=== PATIENT | male | born 1995 | race Caucasian/White ===

== ENCOUNTER 2016-12-26 20:36 | Inpatient (IN) | payer MEDICAID, OTHER ==
[2016-12-26] MEDS ORDERED: NS 0.9% 1000 ML* 3,000 ML IV ONE (21:14)
--- NOTE | 2016-12-26 21:48 | RAD ---
INDICATION: Fever on chemotherapy. COMPARISON: Comparison is made with a prior chest x-ray study from April 12, 2011. TECHNIQUE: A portable view of the chest was obtained. FINDINGS: Cardiac and mediastinal contours appear to be within normal limits. There is a central venous catheter entering from the left side. The catheter tip projects over the right atrium. The lungs are clear. No pleural effusion is seen. IMPRESSION: NO EVIDENCE FOR ACUTE DISEASE.
[2016-12-26 22:30] LABS: Urine Bilirubin Negative (Negative); Urine Glucose Negative (Negative); Urine Nitrite Negative (Negative)
[2016-12-26 22:38] LABS: Hematocrit 25 % (42-52); Hemoglobin 8.8 g/dl (14.0-18.0); Mean Corpuscular HGB Conc 35 g/dl (31-36); Mean Corpuscular Hemoglobin 30 pg (27-31); Mean Corpuscular Volume 84 fL (80-94); Red Blood Count 2.95 10^6/ul (4.0-5.4); Red Cell Distribution Width 14 % (10.5-15); White Blood Count 0.5 10^3/ul (3.5-10.8)
[2016-12-26 22:39] LABS: Comments Flag Yes
[2016-12-26 22:40] LABS: Add Diff/Slide Review? Manual Diff Added
[2016-12-26 22:43] LABS: Albumin 3.6 g/dL (3.2-5.2); BUN/Creatinine Ratio 13.2 (8-20); Calcium 8.6 mg/dL (8.6-10.3); EGFR Non-African American 104.2 (>60); Globulin 1.6 g/dL (2-4); Potassium 3.2 mmol/L (3.5-5.0); Total Bilirubin 1.3 mg/dL (0.2-1.0); Total Protein 5.2 g/dL (6.4-8.9)
[2016-12-26 23:03] LABS: Add Path Review? YES; Hypochromasia 1+
[2016-12-26 23:05] LABS: Mean Platelet Volume 9 um3 (7.4-10.4)
[2016-12-26 23:10] LABS: Neutrophil % 0 % (38-83)
[2016-12-27] MEDS ORDERED: Cefepime(*) 2 GM in NS 0.9% 50 ML* 50 ML IVPB ONE (00:06)
--- NOTE | 2016-12-27 01:49 | HP ---
H&P (Free Text) History and Physical: PCP: Lay Mckeon MD Date/Time of Evaluation: 12/27/2016 0140 CC: fever HPI: Mr Slaughter is a 21YO male HX lymphoma on treatment via oncology in [place] presenting with fever of 100.6F at home for which he took acetaminophen. This was associated with subjective chills, but no cough, congestion, earache, headache, sore throat, open wounds, or other issues. He does have a sore tongue and his 2 young children at home have had runny noses. 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 Acyclovir CAP* [Zovirax CAP*] 200 mg PO BID 12/27/16 Ciprofloxacin TAB* [Cipro 500 MG TAB*] 500 mg PO BID 12/27/16 Compazine Tab* 12/27/16 Fenofibrate 12/27/16 Gabapentin CAP(*) [Neurontin 100 mg CAP(*)] 100 mg PO TID 12/27/16 Lexapro 10 mg 10 mg PO DAILY 12/27/16 Ondansetron ODT TAB* [Zofran 4 MG Odt TAB*] 8 mg PO Q8H PRN 12/27/16 Pantoprazole Sodium 20 mg PO DAILY 12/27/16 Ranitidine HCl [Zantac 75] 75 mg PO DAILY 12/27/16 Sulfamethox/Trimethoprim DS* [Bactrim DS 800/160 TAB*] 1 tab PO SEE INSTRUCTIONS 12/27/16 clonazePAM TAB(*) [Klonopin TAB(*)] 0.5 mg PO BEDTIME 12/27/16 Allergies Tramadol Allergy (Intermediate, Verified 02/02/15 04:20) Difficulty Breathing PSurgHx port placement SocHx: 1 can snuff Q2-3D, denies alcohol & recreational drugs; lives with his & 2 young children; full code status FamHx: negative for cancer ROS: as above, otherwise reviewed and all were negative Constitutional: NAD, normally developed, obese white male vitals: Vital Signs Temp 36.8 C 12/26/16 23:08 Pulse 72 12/26/16 23:08 Resp 17 12/26/16 23:08 BP 112/52 12/26/16 23:08 Pulse Ox 99 12/26/16 23:13 Intake & Output 0612/26/16 12/27/16 11:59 23:59 11:59 Weight 107.955 kg HEENM: atraumatic; sclera/conjunctiva: non-icteric/clear; hearing: clinically intact; oropharynx: clear, mucosa moist Neck: soft tissue: no nuchal rigidity; thyroid: normal Pulmonary: clear to auscultation bilaterally, good aeration, no accessory muscle use CV: RR/RR, normal S1S2, no carotid bruit, no jugular venous distention, 2+ B DP/ PT, no edema Abdominal: soft, non-distended, non-tender, no rebound/guarding/rigidity, normoactive bowel sounds, no hepatosplenomegaly or masses, no costovertebral angle tenderness Musculoskeletal: general: grossly intact; gait: stable Integumental: normal appearance and texture of exposed skin Psychiatric orientation: AA&O to PPTS affect: calm mood: cooperative eye contact: poor content: reliable, lacking in details responses: timely insight: fair Testing: Lab Results 12/26/16 12/26/16 12/26/16 Range/Units 22:15 22:15 22:15 WBC 0.5 L (3.5-10.8) 10^3/ul RBC 2.95 L (4.0-5.4) 10^6/ul Hgb 8.8 L (14.0-18.0) g/dl Hct 25 L (42-52) % MCV 84 (80-94) fL MCH 30 (27-31) pg MCHC 35 (31-36) g/dl RDW 14 (10.5-15) % Plt Count 15 L* (150-450) 10^3/ul MPV 9 (7.4-10.4) um3 Absolute Neuts (auto) 0 L* (1.5-7.7) 10^3/ul Absolute Lymphs (auto) 0.5 L (1.0-4.8) 10^3/ul Absolute Monos (auto) 0 (0-0.8) 10^3/ul Absolute Eos (auto) 0 (0-0.6) 10^3/ul Absolute Basos (auto) 0 (0-0.2) 10^3/ul Absolute Nucleated RBC 0 10^3/ul Neutrophils % 0 L (38-83) % Lymphocytes % 100 H (25-47) % Normal RBC Morphology Not Reportable Hypochromasia 1+ Hem Pathologist Commnt Pending INR (Anticoag Therapy) 1.02 (0.89-1.11) APTT 36.5 H (26.0-36.3) seconds Sodium (133-145) mmol/L Potassium (3.5-5.0) mmol/L Chloride (101-111) mmol/L Carbon Dioxide (22-32) mmol/L Anion Gap (2-11) mmol/L BUN (6-24) mg/dL Creatinine (0.67-1.17) mg/dL Est GFR ( Amer) (>60) Est GFR (Non-Af Amer) (>60) BUN/Creatinine Ratio (8-20) Glucose (70-100) mg/dL Lactic Acid (0.5-2.0) mmol/L Calcium (8.6-10.3) mg/dL Total Bilirubin (0.2-1.0) mg/dL AST (13-39) U/L ALT (7-52) U/L Alkaline Phosphatase (34-104) U/L Troponin I (<0.04) ng/mL Total Protein (6.4-8.9) g/dL Albumin (3.2-5.2) g/dL Globulin (2-4) g/dL Albumin/Globulin Ratio (1-3) Urine Color Yellow Urine Appearance Clear Urine pH 7.0 (5-9) Ur Specific [place] 1.010 (1.010-1.030) Urine Protein Negative (Negative) Urine Ketones Negative (Negative) Urine Blood Negative (Negative) Urine Nitrate Negative (Negative) Urine Bilirubin Negative (Negative) Urine Urobilinogen Negative (Negative) Ur Leukocyte Esterase Negative (Negative) Urine Glucose Negative (Negative) 12/26/16 12/26/16 Range/Units 22:15 22:15 WBC (3.5-10.8) 10^3/ul RBC (4.0-5.4) 10^6/ul Hgb (14.0-18.0) g/dl Hct (42-52) % MCV (80-94) fL MCH (27-31) pg MCHC (31-36) g/dl RDW (10.5-15) % Plt Count (150-450) 10^3/ul MPV (7.4-10.4) um3 Absolute Neuts (auto) (1.5-7.7) 10^3/ul Absolute Lymphs (auto) (1.0-4.8) 10^3/ul Absolute Monos (auto) (0-0.8) 10^3/ul Absolute Eos (auto) (0-0.6) 10^3/ul Absolute Basos (auto) (0-0.2) 10^3/ul Absolute Nucleated RBC 10^3/ul Neutrophils % (38-83) % Lymphocytes % (25-47) % Normal RBC Morphology Hypochromasia Hem Pathologist Commnt INR (Anticoag Therapy) (0.89-1.11) APTT (26.0-36.3) seconds Sodium 136 (133-145) mmol/L Potassium 3.2 L (3.5-5.0) mmol/L Chloride 105 (101-111) mmol/L Carbon Dioxide 24 (22-32) mmol/L Anion Gap 7 (2-11) mmol/L BUN 12 (6-24) mg/dL Creatinine 0.91 (0.67-1.17) mg/dL Est GFR ( Amer) 134.0 (>60) Est GFR (Non-Af Amer) 104.2 (>60) BUN/Creatinine Ratio 13.2 (8-20) Glucose 106 H (70-100) mg/dL Lactic Acid 1.2 (0.5-2.0) mmol/L Calcium 8.6 (8.6-10.3) mg/dL Total Bilirubin 1.30 H (0.2-1.0) mg/dL AST 16 (13-39) U/L ALT 28 (7-52) U/L Alkaline Phosphatase 106 H (34-104) U/L Troponin I 0.00 (<0.04) ng/mL Total Protein 5.2 L (6.4-8.9) g/dL Albumin 3.6 (3.2-5.2) g/dL Globulin 1.6 L (2-4) g/dL Albumin/Globulin Ratio 2.3 (1-3) Urine Color Urine Appearance Urine pH (5-9) Ur Specific [place] (1.010-1.030) Urine Protein (Negative) Urine Ketones (Negative) Urine Blood (Negative) Urine Nitrate (Negative) Urine Bilirubin (Negative) Urine Urobilinogen (Negative) Ur Leukocyte Esterase (Negative) Urine Glucose (Negative) CXR, personally reviewed: IMPRESSION: NO EVIDENCE FOR ACUTE DISEASE. Impression: 21M HX lymphoma on [place] presents with neutropenic fever DIAGNOSIS & PLAN Primary neutropenic fever : cefepime 2g IV Q6H : neutropenic precautions : blood CX : IVFs : supportive care Secondary B-cell lymphoblastic lymphoma : continue outpatient f/u, interested in establishing with local oncology Admission Rational: inpatient for neutropenic fever at high risk of mortality in the outpatient setting DVTp: heparin SQ & SCDs Code Status: full
--- NOTE | 2016-12-27 02:56 | ED ---
Isamar Nichole Alok, scribed for Gamal Rinaldi MD on 12/26/16 at 2132 . HPI Febrile Illness - HPI Summary HPI Summary: 21M presents with a fever of 100.6 F since 1830 today. Pt took tylenol [employer]. Pt also notes sore on right side of mouth as well as tongue swelling. Pt notes non- productive cough for the last month Pt also notes chills earlier today. Pt notes myalgia same as baseline. Pt denies edema, back pain, dysuria, diarrhea or vomiting. Pt denies rhinorrhea. Pt notes seasonal allergies. PMHx includes lymphoma. Pt takes chemotherapy treatment 4 times a week both IV and shots at [facility]. [facility] reports WBC of 0.00 in pt as well as low platelet count. Pt has chemo-port in place since May 2016. Pt medications include but are not limited to Thymidine, Lexapro, Compazine, Zofran, and Gabapentin. - History of Current Complaint Chief Complaint: EDFever Time Seen by Provider: 12/26/16 20:56 Hx Obtained From: Patient Onset/Duration: Started Hours Ago, Atraumatic, Still Present Time of Onset: 18:30 Timing: Constant Temperature: 100.6 F Initial Severity: Moderate Current Severity: Moderate Pain Intensity: 8 Pain Scale Used: 0-10 Numeric Aggravating Factors: Nothing Alleviating Factors: Nothing Associated Signs and Symptoms: Chills, Cough, Other: - tongue swelling - Allergy/Home Medications Allergies/Adverse Reactions: Allergies Allergy/AdvReac Type Severity Reaction Status Date / Time Tramadol Allergy Intermediate Difficulty Verified 02/02/15 04:20 Breathing PMH/Surg Hx/FS Hx/Imm Hx Endocrine/Hematology History: Denies: Hx Diabetes, Hx Thyroid Disease Cardiovascular History: Denies: Hx Hypertension Respiratory History: Denies: Hx Asthma, Hx Chronic Obstructive Pulmonary Disease (COPD) GI History: Denies: Hx Ulcer Infectious Disease History: Denies: Hx Clostridium Difficile, Hx Hepatitis, Hx Human Immunodeficiency Virus (HIV), Hx of Known/Suspected MRSA, Hx Shingles, Traveled Outside the [place] in Last 30 Days - Family History Known Family History: Negative: Cardiac Disease, Hypertension, Diabetes - Social History Occupation: Employed Full-time Lives: With Family Alcohol Use: None Substance Use Type: Reports: None Smoking Status (MU): Light Every Day Tobacco Smoker Type: Smokeless Tobacco Do You Chew or Dip Tobacco: Yes Amount Used/How Often: 1 can daily Review of Systems Positive: Fever, Chills Positive: Other - tongue swelling. Negative: Nasal Discharge Positive: Cough Negative: Vomiting, Diarrhea Negative: dysuria Positive: Myalgia - chronic. Negative: Edema, Other - back pain Negative: Rash All Other Systems Reviewed And Are Negative: Yes Physical Exam - Summary Physical Exam Summary: The patient is obese in no acute distress and in no acute pain. The skin is warm and dry and skin color reflects adequate perfusion. Good skin turgor. No rashes HEENT: The head is normocephalic and atraumatic. The pupils are equal and reactive. The conjunctivae are clear and without drainage. Nares are patent and without drainage. Mouth reveals moist mucous membranes and the throat is without erythema and exudate. The external ears are intact. The ear canals are patent and without drainage. The tympanic membranes are intact. No rhinorrhea. Swelling right side tongue. No Thrush. Neck is supple with full range of motion and non-tender. There are no carotid bruits. There is no neck vein distension. No nuchal rigidity. Respiratory: Chest is non-tender. Lungs are clear to auscultation and breath sounds are symmetrical and equal. Cardiovascular: Hear is regular rate and rhythm. There is no murmur or rub auscultated. There is no peripheral edema and pulses are symmetrical and equal. Abdomen: The abdomen is obese, soft and non-tender. There are normal bowel sounds heard in all four quadrants and there is no organomegaly palpated. Musculoskeletal: There is no back pain noted. Extremities are non-tender with full range of motion. There is good capillary refill. There is no peripheral edema or calf tenderness elicited. Neurological: Patient is alert and oriented to person, place and time. The patient has symmetrical motor strength in all four extremities. Cranial nerves are grossly intact. Deep tendon reflexes are symmetrical and equal in all four extremities. Psychiatric: The patient has an appropriate affect and does not exhibit any anxiety or depression. Triage Information Reviewed: Yes Vital Signs On Initial Exam: Initial Vitals Temp Pulse Resp BP Pulse Ox 98.7 F 105 20 130/73 100 12/26/16 20:41 12/26/16 20:41 12/26/16 20:41 12/26/16 20:41 12/26/16 20:41 Vital Signs Reviewed: Yes Diagnostics - Vital Signs Vital Signs Temp Pulse Resp BP Pulse Ox 12/26/16 20:41 98.7 F 105 20 130/73 100 - Laboratory Lab Results: Lab Results 12/26/16 12/26/16 12/26/16 Range/Units 22:15 22:15 22:15 WBC 0.5 L (3.5-10.8) 10^3/ul RBC 2.95 L (4.0-5.4) 10^6/ul Hgb 8.8 L (14.0-18.0) g/dl Hct 25 L (42-52) % MCV 84 (80-94) fL MCH 30 (27-31) pg MCHC 35 (31-36) g/dl RDW 14 (10.5-15) % Plt Count 15 L* (150-450) 10^3/ul MPV 9 (7.4-10.4) um3 Absolute Neuts (auto) 0 L* (1.5-7.7) 10^3/ul Absolute Lymphs (auto) 0.5 L (1.0-4.8) 10^3/ul Absolute Monos (auto) 0 (0-0.8) 10^3/ul Absolute Eos (auto) 0 (0-0.6) 10^3/ul Absolute Basos (auto) 0 (0-0.2) 10^3/ul Absolute Nucleated RBC 0 10^3/ul Neutrophils % 0 L (38-83) % Lymphocytes % 100 H (25-47) % Normal RBC Morphology Not Reportable Hypochromasia 1+ Hem Pathologist Commnt Pending INR (Anticoag Therapy) 1.02 (0.89-1.11) APTT 36.5 H (26.0-36.3) seconds Sodium (133-145) mmol/L Potassium (3.5-5.0) mmol/L Chloride (101-111) mmol/L Carbon Dioxide (22-32) mmol/L Anion Gap (2-11) mmol/L BUN (6-24) mg/dL Creatinine (0.67-1.17) mg/dL Est GFR ( Amer) (>60) Est GFR (Non-Af Amer) (>60) BUN/Creatinine Ratio (8-20) Glucose (70-100) mg/dL Lactic Acid (0.5-2.0) mmol/L Calcium (8.6-10.3) mg/dL Total Bilirubin (0.2-1.0) mg/dL AST (13-39) U/L ALT (7-52) U/L Alkaline Phosphatase (34-104) U/L Troponin I (<0.04) ng/mL Total Protein (6.4-8.9) g/dL Albumin (3.2-5.2) g/dL Globulin (2-4) g/dL Albumin/Globulin Ratio (1-3) Urine Color Yellow Urine Appearance Clear Urine pH 7.0 (5-9) Ur Specific [place] 1.010 (1.010-1.030) Urine Protein Negative (Negative) Urine Ketones Negative (Negative) Urine Blood Negative (Negative) Urine Nitrate Negative (Negative) Urine Bilirubin Negative (Negative) Urine Urobilinogen Negative (Negative) Ur Leukocyte Esterase Negative (Negative) Urine Glucose Negative (Negative) 12/26/16 12/26/16 Range/Units 22:15 22:15 WBC (3.5-10.8) 10^3/ul RBC (4.0-5.4) 10^6/ul Hgb (14.0-18.0) g/dl Hct (42-52) % MCV (80-94) fL MCH (27-31) pg MCHC (31-36) g/dl RDW (10.5-15) % Plt Count (150-450) 10^3/ul MPV (7.4-10.4) um3 Absolute Neuts (auto) (1.5-7.7) 10^3/ul Absolute Lymphs (auto) (1.0-4.8) 10^3/ul Absolute Monos (auto) (0-0.8) 10^3/ul Absolute Eos (auto) (0-0.6) 10^3/ul Absolute Basos (auto) (0-0.2) 10^3/ul Absolute Nucleated RBC 10^3/ul Neutrophils % (38-83) % Lymphocytes % (25-47) % Normal RBC Morphology Hypochromasia Hem Pathologist Commnt INR (Anticoag Therapy) (0.89-1.11) APTT (26.0-36.3) seconds Sodium 136 (133-145) mmol/L Potassium 3.2 L (3.5-5.0) mmol/L Chloride 105 (101-111) mmol/L Carbon Dioxide 24 (22-32) mmol/L Anion Gap 7 (2-11) mmol/L BUN 12 (6-24) mg/dL Creatinine 0.91 (0.67-1.17) mg/dL Est GFR ( Amer) 134.0 (>60) Est GFR (Non-Af Amer) 104.2 (>60) BUN/Creatinine Ratio 13.2 (8-20) Glucose 106 H (70-100) mg/dL Lactic Acid 1.2 (0.5-2.0) mmol/L Calcium 8.6 (8.6-10.3) mg/dL Total Bilirubin 1.30 H (0.2-1.0) mg/dL AST 16 (13-39) U/L ALT 28 (7-52) U/L Alkaline Phosphatase 106 H (34-104) U/L Troponin I 0.00 (<0.04) ng/mL Total Protein 5.2 L (6.4-8.9) g/dL Albumin 3.6 (3.2-5.2) g/dL Globulin 1.6 L (2-4) g/dL Albumin/Globulin Ratio 2.3 (1-3) Urine Color Urine Appearance Urine pH (5-9) Ur Specific [place] (1.010-1.030) Urine Protein (Negative) Urine Ketones (Negative) Urine Blood (Negative) Urine Nitrate (Negative) Urine Bilirubin (Negative) Urine Urobilinogen (Negative) Ur Leukocyte Esterase (Negative) Urine Glucose (Negative) Result Diagrams: 12/26/16 22:15 12/26/16 22:15 Lab Statement: Any lab studies that have been ordered have been reviewed, and results considered in the medical decision making process. - Radiology CXR Xray Interpretation: Positive (See Comments) - IMPRESSION: NO EVIDENCE FOR ACUTE DISEASE. Radiology Interpretation Completed By: Radiologist Course/Dx - Febrile Illness Differential Diagnoses: Bacteremia, Pneumonia, Other: - uti, neutropenic sepsis - Diagnoses Provider Diagnoses: Neutropenic sepsis - Provider Notifications Discussed Care Of Patient With: Dr. Bauitsta ([facility]) - Recommend admit to [facility]. Time Discussed With Above Provider: 00:12 - Spoke with Dr. Cutler ( Hospitalist) @ 0014 - Will admit pt to [facility] - Critical Care Time Critical Care Time: 30-74 min - 30 minutes Discharge - Discharge Plan Condition: Stable Disposition: ADMITTED TO [facility] documentation as recorded by the Isamar pearson Alok accurately reflects the service I personally performed and the decisions made by me, Gamal Rinaldi MD.
[2016-12-27] MEDS: Acetaminophen TAB* 325 MG PO PRN ×3 (03:20→16:07)
[2016-12-27] MEDS: NS 0.9% 1000 ML* 1,000 ML IV SCH ×3 (03:22→20:19)
[2016-12-27] MEDS: Potassium Chlor TAB* 20 MEQ TAB.ER PO SCH ×2 (03:23→06:31)
[2016-12-27] MEDS: Cefepime(*) 2 GM in NS 0.9% 50 ML* 50 ML IVPB SCH ×3 (05:11→18:07)
[2016-12-27] MEDS: Omeprazole CAP* 20 MG PO SCH (05:28)
[2016-12-27 06:00] LABS: Hemoglobin 8.8 g/dl (14.0-18.0)
[2016-12-27 06:05] LABS: Hematocrit 25 % (42-52); Mean Corpuscular HGB Conc 35 g/dl (31-36); Mean Corpuscular Hemoglobin 30 pg (27-31); Mean Corpuscular Volume 85 fL (80-94); Mean Platelet Volume 10 um3 (7.4-10.4); Red Blood Count 2.95 10^6/ul (4.0-5.4); Red Cell Distribution Width 13 % (10.5-15); White Blood Count 0.3 10^3/ul (3.5-10.8)
[2016-12-27 06:09] LABS: Comments Flag Yes
[2016-12-27 06:10] LABS: BUN/Creatinine Ratio 13.3 (8-20); Calcium 8.6 mg/dL (8.6-10.3); EGFR African American 135.7 (>60); EGFR Non-African American 105.5 (>60)
[2016-12-27] MEDS ORDERED: CMCS: Melatonin (NF) 3 MG TAB PO PRN (08:00)
[2016-12-27] MEDS: Magic Mouth Was-BEN/MAAL/LIDO SWISH SPIT PRN (09:36)
[2016-12-27] MEDS: Ondansetron INJ* 2 MG/ML VIAL IV PRN ×2 (09:36→18:08)
[2016-12-27] MEDS: Gabapentin CAP(*) 100 MG PO SCH ×3 (12:21→20:21)
[2016-12-27] MEDS: Acyclovir* 200 MG CAP PO SCH ×2 (12:22→20:21)
[2016-12-27] MEDS: CMC: Escitalopram (NF) 10 MG TAB PO SCH (12:27)
[2016-12-27] MEDS: Famotidine TAB* 20 MG PO SCH (12:27)
[2016-12-27] MEDS ORDERED: Vancomycin(*) 2,000 MG in NS 0.9% 500 ML BAG* 500 ML IVPB ONE (17:29)
[2016-12-27] MEDS ORDERED: Vancomycin per Pharmacy* NOTE FOLLOW UP PRN (17:37)
[2016-12-27] MEDS ORDERED: NS 0.9% 500 ML BAG* 500 ML IV SCH (18:00)
[2016-12-27] MEDS ORDERED: Vancomycin(*) 0 MG in NS 0.9% 250 ML* 250 ML IVPB SCH (18:00)
[2016-12-27] MEDS ORDERED: oxyCODONE/Acetamin 5/325 MG* TAB PO ONE (19:10)
[2016-12-27] MEDS: clonazePAM TAB(*) 0.5 MG PO SCH (20:21)
[2016-12-28] MEDS: Cefepime(*) 2 GM in NS 0.9% 50 ML* 50 ML IVPB SCH ×4 (00:05→20:02)
[2016-12-28] MEDS: Acetaminophen TAB* 325 MG PO PRN ×2 (03:58→09:08)
[2016-12-28] MEDS: NS 0.9% 1000 ML* 1,000 ML IV SCH ×2 (05:01→20:02)
[2016-12-28] MEDS: Omeprazole CAP* 20 MG PO SCH (05:52)
[2016-12-28] MEDS ORDERED: Heparin VIAL(*) 5000 UNITS/ML VIAL (FIVE THOUSAND) SUBCUT SCH (06:00)
[2016-12-28 06:14] LABS: Hematocrit 25 % (42-52); Hemoglobin 8.6 g/dl (14.0-18.0); Mean Corpuscular HGB Conc 34 g/dl (31-36); Mean Corpuscular Hemoglobin 30 pg (27-31); Mean Corpuscular Volume 86 fL (80-94); Mean Platelet Volume 11 um3 (7.4-10.4); Red Blood Count 2.91 10^6/ul (4.0-5.4); Red Cell Distribution Width 14 % (10.5-15); White Blood Count 0.2 10^3/ul (3.5-10.8)
[2016-12-28 06:16] LABS: Comments Flag Yes
--- NOTE | 2016-12-28 06:16 | CONS ---
MEDICAL ONCOLOGY CONSULTATION NOTE: DATE OF ADMISSION: 12/26/16 DATE OF CONSULT: 12/27/16 REASON FOR ADMISSION: Febrile neutropenia. HISTORY OF PRESENT ILLNESS: Mr. Slaughter is a 21-year-old male who reports that he was originally fo und to have a very large tumor on his scalp approximately 12 cm across. This grew for a significant period of time before he sought medical attention. It was biopsied and diagnosed in April 2016. At that time, he was found to have an acute B-cell lymphoblastic lymphoma. He also had biopsies ap parently of 2 lymph nodes both of which were benign in the right neck. Initially, he was hospitalize d for 46 days at [facility] in [place], [place]. He has been treated with a comple x regimen of chemotherapy on the pediatric protocol on clinical trial. Medications have included do xorubicin, vincristine, PEG-ASPARAGINASE, methotrexate both IV and intrathecal, Cytoxan, and cytarab ine. He subsequently has developed allergy to the PEG-ASPARAGINASE and has been switched to Erwinia preparation. All chemotherapies have been outpatient since the initial 46-day hospitalization. He does not have any significant neutropenic fevers over the course of his therapy until now. He is d ue to complete the standard portion of the chemotherapy within the next 2 weeks and then will be catracho rufina on maintenance. He most recently had chemotherapy with Erwinia on 2 days ago and with cytarabin e about 10 days ago. He also has been on some oral chemotherapy. At the time of his initial workup , he was found to have localized disease only. Bone marrow biopsy was negative. He developed a fever yesterday along with shaking chills. He reports that he has had a cough for ab out 2 months, which is now worsening. He has not had a sore throat, diarrhea, urinary symptoms, ear aches or pain, or any shortness of breath. He does report a lot of bruising at injection sites and b lood draws without spontaneous bleeding or other bruising. He has had an Gihies-t-Sryc placed since May 2016 without any difficulties. He has been on long-standing antimicrobial prophylaxis with acyclovir and Bactrim and reports that a bout 3 days ago, he was found to have an ANC of 0, was placed on a course of Cipro. He has had othe r antibiotics when he has had a cough or other signs of mild potential infections over the course of his therapy, including mostly a medication such as Zithromax. He presented to the emergency room here and was admitted by the hospitalist service. At the time of admission, CBC revealed a white count of 500; hematocrit 25; hemoglobin 8.8; platelet count 15,000; 100% lymphocytes; and no neutrophils seen. On repeat this morning total white count of 300; H and H still of 25 and 8.8; and a platelet count now of 12,000; 86% lymphocytes; 9% neutrophils; and 4% e os giving an ANC of 27. Chemistry studies; sodium 134, potassium 4.0, chloride 104, bicarb 21, BUN 12, creatinine 0.9, and glucose 100. On admission, LFTs were essentially normal with a bilirubin sl ightly elevated at 1.3 and an alk phos slightly elevated at 106 with normal transaminases. Admission chest x-ray without any evidence of any infiltrates or any acute disease. Cultures obtaine d at the time of admission, there are all no growth to date. PAST MEDICAL HISTORY: Otherwise negative, no hypertension, diabetes, NV, or CVA. PAST SURGICAL HISTORY: No prior surgeries or hospitalizations. MEDICATIONS AT THE TIME OF ADMISSION: Include: 1. Acyclovir 200 mg b.i.d. 2. Cipro 500 mg b.i.d., just started a couple of days ago. 3. Bactrim DS 1 tablet as directed. 4. Clonazepam 0.5 mg at bedtime. 5. Ranitidine 75 mg daily. 6. Pantoprazole 20 mg daily. 7. Zofran ODT 8 mg p.r.n. 8. Lexapro 10 mg daily. 9. Neurontin 100 mg t.i.d. 10. Fenofibrate. 11. Compazine p.r.n. ALLERGIES: TRAMADOL causes some difficulty breathing. FAMILY HISTORY: Maternal grandmother with a head and neck cancer with surgery about 3 years ago and currently doing fine. Both parents are alive and well. Two half siblings. Two children ages 1 an d 2. No other significant family history to report. 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 Lives with the and 2 children. He chews tobacco, but has markedly decreased since the time of diagnosis. He has never been a smoker. Alcohol, but never heavy. Denies any other drugs. REVIEW OF SYSTEMS: Muscle aches after when he had injections. Appetite has been reasonable. Weigh t stable. No major nausea or vomiting on the most recent portion of his chemotherapy regimen. No s ignificant changes in bowel or bladder habits. No shortness of breath, chest pain, or palpitations. No significant rashes. No open areas on the skin and she has a port, works well. Review of system s is otherwise negative except as discussed above. PHYSICAL EXAM: Vital Signs: Blood pressure 116/63 and has not been hypotensive, pulse 102, tempera ture on admission 98.7, but his temperatures have been as high as 100.3. HEENT: PERRL. No erythem a or exudates. No thrush. No mucositis. No palpable cervical, supraclavicular, or axillary adenop athy. Lungs: Clear. Heart: Regular rate and rhythm without murmurs, rubs, or gallops. Abdomen: Soft, nontender without masses or organomegaly. Extremities: No clubbing, cyanosis, or edema. Duran k: No CVA or spinal tenderness. Neck is supple. Neurologic Exam: Without focal deficits. IMPRESSION: 1. A 21-year-old male on clinical trial and undergoing therapy for acute lymphoblastic lymphoma, B- cell origin. He has had chemotherapy recently and presents with a fever. No obvious source and sev ere neutropenia with an ANC of 0 on admission, currently ANC of 9% of 300 cells for an ANC of 27. H e has been placed on cefepime at a standard dose of 2 g q.6 hours. He has been maintained on acyclo vir and will be continued on his Bactrim prophylaxis. Once the cultures have been negative for at l east 48 hours and afebrile for at least 48 hours, consideration for switching to oral antibiotics. He will continue to be watched carefully for any source of the infection. If he remains neutropenic for a significant period of time, we will discuss with his team at [facility] whether or not he is a ca ndidate for colony stimulating agent such as Neupogen. Present time, he will be maintained off of t hose as he does not look septic. 2. Thrombocytopenia: Platelets are currently 12,000. If platelets fall below 10,000 or if he has significant bleeding that the transfusions will be given. 3. Ongoing therapy of acute lymphoblastic lymphoma: The patient is about to start on maintenance p ortion of his therapy, which will consist per his understanding of chemotherapy pills along with Dec adron 5 days per month and vincristine IV monthly and LP with methotrexate 4 times per year. He wis hes to continue his therapy in [place], which is clearly in his best interest. However, he is que stioning whether he could receive the vincristine IV locally to make it simpler for his regimen. If he discusses this with his team in [place] and they are in agreement, certainly that can be done through our office. 4. DVT prophylaxis with platelet count of 12,000, so I totally agree that he should not be on anyth ing other than his compression. [id number]/[facility] #: [id number]
[2016-12-28 06:18] LABS: Add Diff/Slide Review? Manual Diff Added
[2016-12-28 06:20] LABS: BUN/Creatinine Ratio 14.9 (8-20); Calcium 8.5 mg/dL (8.6-10.3); EGFR African American 141.1 (>60); EGFR Non-African American 109.7 (>60); Potassium 4.5 mmol/L (3.5-5.0)
[2016-12-28 06:58] LABS: Eosinophils % 4 % (0-6); Hypochromasia 1+; Neutrophil % 1 % (38-83); Reactive Lymph % 1 % (0-6)
[2016-12-28] MEDS ORDERED: Fenofibrate(NF) 48 MG TAB PO SCH (09:00)
[2016-12-28] MEDS: Acyclovir* 200 MG CAP PO SCH ×2 (09:03→20:03)
[2016-12-28] MEDS: Famotidine TAB* 20 MG PO SCH (09:03)
[2016-12-28] MEDS: CMC: Escitalopram (NF) 10 MG TAB PO SCH (09:03)
[2016-12-28] MEDS: Gabapentin CAP(*) 100 MG PO SCH ×3 (09:03→20:04)
[2016-12-28] MEDS: Magic Mouth Was-BEN/MAAL/LIDO SWISH SPIT PRN (09:08)
[2016-12-28] MEDS ORDERED: Benzocaine (DENTAL) 10%* TOP.GEL TOPICAL PRN (09:37)
--- NOTE | 2016-12-28 10:19 | RAD ---
Indication: Neutropenic. Fever. Comparison: December 26, 2016 Technique: Upright AP 1000 hours Report: Tip of LEFT chest port is at the level of the superior vena cava RIGHT atrial junction. Clear lungs and pleural spaces. The heart, pulmonary vasculature, and mediastinal contours are unremarkable. Unremarkable osseous structures and soft tissue contours. IMPRESSION: No evidence for pneumonia. No evidence for acute intrathoracic disease.
[2016-12-28] MEDS ORDERED: TBO FILGRASTIM 480 MCG/0.8 ML SUBCUT ONE (11:30)
[2016-12-28] MEDS ORDERED: FILGRASTIM-SNDZ* 480 MCG/0.8 ML SYRINGE SUBCUT ONE (12:00)
[2016-12-28] MEDS: Ondansetron INJ* 2 MG/ML VIAL IV PRN (12:33)
[2016-12-28] MEDS: Nystatin SUSPENSION* 100000 UNITS/ML 5 ML UDC PO SCH ×3 (14:38→20:02)
[2016-12-28] MEDS: oxyCODONE/Acetamin 5/325 MG* TAB PO PRN ×2 (14:41→20:03)
--- NOTE | 2016-12-28 16:17 | PN ---
Subjective Date of Service: 12/28/16 Interval History: . Long discussion with patient and at bedside this AM and yesterday afternoon. Also, discussed case with Charity CARDOSO, yesterday afternoon. Much of my conversation was about educating about neutropenic fever and explaining rationale for antibiotics selected. Ongoing fever not unexpected, and repeat cultures drawn and fever suppressible with tylenol. Discussed neupogen / platelet therapy and both will happen today. Will reach out to Dr. Mckeon at [facility] tomorrow when she is back in office. Discussed oragel for oral pain related to lesion on lateral aspect of tongue. Discussed ANC still 0 and role of neupogen in this setting. patient still frustrated by ongoing fever and oral pain. eating ok--as best he can--I encouraged as much shakes as he can eat -- no restrictions on diet. percocet for intermitted headache. (adding stool softener as well). present frequently. good spirits at end of conversation. . Family History: Unchanged from Admission Social History: Unchanged from Admission Past Medical History: Unchanged from Admission Objective Active Medications: . Acetaminophen (Tylenol Tab*) 650 mg PO Q6H PRN PRN Reason: FEVER/PAIN Last Admin: 12/28/16 09:08 Dose: 650 mg Acyclovir (Zovirax Cap*) 200 mg PO BID [facility] Last Admin: 12/28/16 09:03 Dose: 200 mg Benzocaine (Orajel 10%*) 1 applic TOPICAL Q4H PRN PRN Reason: PAIN Clonazepam (Klonopin Tab(*)) 0.5 mg PO BEDTIME [facility] Last Admin: 12/27/16 20:21 Dose: 0.5 mg Escitalopram Oxalate (Lexapro (Nf)) 10 mg PO DAILY [facility] Last Admin: 12/28/16 09:03 Dose: 10 mg Famotidine (Pepcid Tab*) 10 mg PO DAILY [facility] Last Admin: 12/28/16 09:03 Dose: 10 mg Fenofibrate (Tricor(Nf)) 48 mg PO DAILY [facility] Filgrastim-Sndz (Zarxio*) 480 mcg SUBCUT DAILY [facility] Gabapentin (Neurontin Cap(*)) 100 mg PO TID [facility] Last Admin: 12/28/16 14:38 Dose: 100 mg Cefepime HCl 2 gm/ Sodium (Chloride) 50 mls @ 100 mls/hr IVPB Q6H [facility] Last Admin: 12/28/16 12:08 Dose: 100 mls/hr Sodium Chloride (Ns 0.9% 1000 Ml*) 1,000 mls @ 125 mls/hr IV PER RATE [facility] Last Admin: 12/28/16 05:01 Dose: 125 mls/hr Sodium Chloride (Ns 0.9% 500 Ml Bag*) 500 mls @ 0 mls/hr IV KVO LIZA PRN Reason: KVO Last Admin: 12/27/16 18:53 Dose: 500 mls/hr Melatonin (Melatonin (Nf)) 3 mg PO BEDTIME PRN; Protocol PRN Reason: Sleep Multi-Ingredient Mouthwash/Gargle (Magic Mouth Was-Shon/Maal/Lido*) 5 ml SWISH SPIT Q4H PRN PRN Reason: MOUTH PAIN Last Admin: 12/28/16 09:08 Dose: 5 ml Nystatin (Nystatin Suspension*) 200,000 units PO QID [facility] Last Admin: 12/28/16 14:38 Dose: 200,000 units Omeprazole (Prilosec Cap*) 20 mg PO DAILY@0600 [facility] Last Admin: 12/28/16 05:52 Dose: 20 mg Ondansetron HCl (Zofran Inj*) 4 mg IV Q6H PRN PRN Reason: NAUSEA Last Admin: 12/28/16 12:33 Dose: 4 mg Oxycodone/Acetaminophen (Percocet 5/325 Tab*) 1 tab PO Q4H PRN PRN Reason: PAIN Oxycodone/Acetaminophen (Percocet 5/325 Tab*) 2 tab PO Q4H PRN PRN Reason: PAIN Last Admin: 12/28/16 14:41 Dose: 2 tab Trimethoprim/Sulfamethoxazole (Bactrim Ds 800/160 Tab*) 1 tab PO MoWeFr@0900 [facility] . Vital Signs 12/27/16 12/27/16 12/27/16 16:24 18:03 18:06 Temperature 102.5 F 100.2 F Pulse Rate 102 Respiratory 28 19 Rate Blood Pressure 128/76 (mmHg) O2 Sat by Pulse 100 Oximetry 12/27/16 12/27/16 12/27/16 19:37 20:00 20:12 Temperature 101.1 F Pulse Rate 103 Respiratory 18 20 20 Rate Blood Pressure 127/76 (mmHg) O2 Sat by Pulse 100 Oximetry Appearance: NAD Eyes: No Scleral Icterus Ears/Nose/Mouth/Throat: Clear Oropharnyx - R lateral lesion - not fluctuant ( neutropenic) - ulcer-like. Respiratory: Symmetrical Chest Expansion and Respiratory Effort, - - left upper chest port in situ Cardiovascular: NL Sounds; No Murmurs; No JVD Abdominal: NL Sounds; No Tenderness; No Distention Lymphatic: No Cervical Adenopathy Extremities: No Edema Skin: No Rash or Ulcers Neurological: Alert and Oriented x 3 Lines/Tubes/Other Access: Clean, Dry and Intact Other Access - port Nutrition: Taking PO's Result Diagrams: 12/28/16 05:40 12/28/16 05:40 Additional Lab and Data: . Microbiology and Other Data: Microbiology 12/27/16 05:30 Aerobic Blood Culture - Preliminary Blood Venous No Growth Day 1 Anaerobic Blood Culture - Preliminary No Growth Day 1 Assess/Plan/Problems-Billing . 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 ANC ~0 on 12/28/2016 . - Patient Problems (1) Neutropenic fever Current Visit: Yes Status: Acute Priority: High Code(s): D70.9 - NEUTROPENIA, UNSPECIFIED; R50.81 - FEVER PRESENTING WITH CONDITIONS CLASSIFIED ELSEWHERE Comment: - IV cefepime and IV acyclovir. - Bactrim ppx. - BCX, UCX NGTD - CXR without infiltrate - ongoing fevers, responsive to acetaminophen. (2) B-cell acute lymphoblastic leukemia Current Visit: Yes Status: Acute Priority: High Code(s): C91.00 - ACUTE LYMPHOBLASTIC LEUKEMIA NOT HAVING ACHIEVED REMISSION (3) Oral lesion Current Visit: Yes Status: Acute Code(s): K13.70 - UNSPECIFIED LESIONS OF ORAL MUCOSA Comment: - following; oragel & magic mouthwash. (4) Headache Current Visit: Yes Status: Acute Priority: High Code(s): R51 - HEADACHE Comment: - percocet prn, no confusion noted, no nuchal regidity. (5) Pancytopenia due to chemotherapy Current Visit: Yes Status: Acute Priority: High Code(s): D61.810 - ANTINEOPLASTIC CHEMOTHERAPY INDUCED PANCYTOPENIA Comment: - platelet transfusion for plts < 10K - neupogen ordered for ANC ~ 0 and pt reports he is scheduled for that on 2016. - Hgb > 8 and stable.
[2016-12-28] MEDS: clonazePAM TAB(*) 0.5 MG PO SCH (20:05)
[2016-12-28] MEDS: RANITIDINE HCL 300 MG PO SCH (20:07)
[2016-12-28 23:11] LABS: Mean Platelet Volume 7 um3 (7.4-10.4)
[2016-12-28 23:14] LABS: Comments Flag Yes
[2016-12-29] MEDS: Acetaminophen TAB* 325 MG PO PRN ×2 (01:41→17:17)
[2016-12-29] MEDS: Cefepime(*) 2 GM in NS 0.9% 50 ML* 50 ML IVPB SCH ×4 (01:41→17:18)
[2016-12-29] MEDS: NS 0.9% 1000 ML* 1,000 ML IV SCH ×2 (05:47→14:52)
[2016-12-29] MEDS: Omeprazole CAP* 20 MG PO SCH (05:53)
[2016-12-29] MEDS: oxyCODONE/Acetamin 5/325 MG* TAB PO PRN ×2 (07:36→11:25)
[2016-12-29] MEDS: FILGRASTIM-SNDZ* 480 MCG/0.8 ML SYRINGE SUBCUT SCH (08:46)
[2016-12-29] MEDS: Gabapentin CAP(*) 100 MG PO SCH ×3 (08:47→21:26)
[2016-12-29] MEDS: Nystatin SUSPENSION* 100000 UNITS/ML 5 ML UDC PO SCH ×4 (08:47→21:28)
[2016-12-29] MEDS: Acyclovir* 200 MG CAP PO SCH ×2 (08:48→21:26)
[2016-12-29] MEDS: FENOFIBRATE 48 MG PO SCH (08:48)
[2016-12-29] MEDS: Sulfamethox/Trimethoprim DS 800/160* TAB PO SCH (08:48)
[2016-12-29] MEDS: CMC: Escitalopram (NF) 10 MG TAB PO SCH (08:48)
[2016-12-29] MEDS ORDERED: Pantoprazole TAB (NF) 20 MG TAB PO SCH (09:00)
--- NOTE | 2016-12-29 10:55 | PN ---
Progress Note - Progress Note SOAP: Subjective: []No change today. No fevers in hospital, temp remains mildly elevated. Eating well. Report having had high does Cytarabine approximately 2 weeks ago and was treated with sq Neupogen, completed last week. One mouth soar. No skin changes. Port has been fine. No urinary symptoms and no cough. Acetaminophen (Tylenol Tab*) 650 mg PO Q6H PRN PRN Reason: FEVER/PAIN Last Admin: 12/29/16 01:41 Dose: 650 mg Acyclovir (Zovirax Cap*) 200 mg PO BID [facility] Last Admin: 12/29/16 08:48 Dose: 200 mg Benzocaine (Orajel 10%*) 1 applic TOPICAL Q4H PRN PRN Reason: PAIN Clonazepam (Klonopin Tab(*)) 0.5 mg PO BEDTIME [facility] Last Admin: 12/28/16 20:05 Dose: 0.5 mg Escitalopram Oxalate (Lexapro (Nf)) 10 mg PO DAILY [facility] Last Admin: 12/29/16 08:48 Dose: 10 mg Fenofibrate (Tricor(Nf)) 48 mg PO DAILY [facility] Last Admin: 12/29/16 08:48 Dose: 48 mg Filgrastim-Sndz (Zarxio*) 480 mcg SUBCUT DAILY [facility] Last Admin: 12/29/16 08:46 Dose: 480 mcg Gabapentin (Neurontin Cap(*)) 100 mg PO TID [facility] Last Admin: 12/29/16 08:47 Dose: 100 mg Cefepime HCl 2 gm/ Sodium (Chloride) 50 mls @ 100 mls/hr IVPB Q6H [facility] Last Admin: 12/29/16 05:47 Dose: 100 mls/hr Sodium Chloride (Ns 0.9% 1000 Ml*) 1,000 mls @ 125 mls/hr IV PER RATE [facility] Last Admin: 12/29/16 05:47 Dose: 125 mls/hr Sodium Chloride (Ns 0.9% 500 Ml Bag*) 500 mls @ 0 mls/hr IV KVO LIZA PRN Reason: KVO Last Admin: 12/27/16 18:53 Dose: 500 mls/hr Melatonin (Melatonin (Nf)) 3 mg PO BEDTIME PRN; Protocol PRN Reason: Sleep Multi-Ingredient Mouthwash/Gargle (Magic Mouth Was-Shon/Maal/Lido*) 5 ml SWISH SPIT Q4H PRN PRN Reason: MOUTH PAIN Last Admin: 12/28/16 09:08 Dose: 5 ml Nystatin (Nystatin Suspension*) 200,000 units PO QID [facility] Last Admin: 12/29/16 08:47 Dose: 200,000 units Omeprazole (Prilosec Cap*) 20 mg PO DAILY@0600 [facility] Last Admin: 12/29/16 05:53 Dose: 20 mg Ondansetron HCl (Zofran Inj*) 4 mg IV Q6H PRN PRN Reason: NAUSEA Last Admin: 12/28/16 12:33 Dose: 4 mg Oxycodone/Acetaminophen (Percocet 5/325 Tab*) 1 tab PO Q4H PRN PRN Reason: PAIN Oxycodone/Acetaminophen (Percocet 5/325 Tab*) 2 tab PO Q4H PRN PRN Reason: PAIN Last Admin: 12/29/16 07:36 Dose: 2 tab Ranitidine HCl (Ranitidine Hcl) 150 mg PO BEDTIME [facility] PRN Reason: Protocol Last Admin: 12/28/16 20:07 Dose: 150 mg Trimethoprim/Sulfamethoxazole (Bactrim Ds 800/160 Tab*) 1 tab PO MoWeFr@0900 [facility] Last Admin: 12/29/16 08:48 Dose: 1 tab Objective: Vital Signs Temp Pulse Resp BP Pulse Ox 99.9 F 86 17 130/77 100 12/29/16 07:37 12/29/16 07:37 12/29/16 08:47 12/29/16 07:37 12/29/16 07:37 HEENT - No oral lesions, small soar on lip. No residual disease scalp. Neck w/o LAD CTA RRR S1S2 Obese, no HSM Ext w/o edema Neuro NF Assessment: []21 year old on consolidation for ALL, NF after Cytarabine. Plan: []1. Will continue antibiotics 2. Will discuss Neupogen with Dr. Poole. 3. Will continue to follow, no change in supportive medications today.
[2016-12-29 12:11] LABS: Hematocrit 21 % (42-52); Hemoglobin 7.2 g/dl (14.0-18.0); Mean Corpuscular HGB Conc 35 g/dl (31-36); Mean Corpuscular Hemoglobin 29 pg (27-31); Mean Corpuscular Volume 84 fL (80-94); Mean Platelet Volume 7 um3 (7.4-10.4); Red Blood Count 2.47 10^6/ul (4.0-5.4); Red Cell Distribution Width 13 % (10.5-15); White Blood Count 0.2 10^3/ul (3.5-10.8)
[2016-12-29 12:14] LABS: Comments Flag Yes
[2016-12-29 12:16] LABS: Add Diff/Slide Review? Manual Diff Added
[2016-12-29 13:16] LABS: Add Path Review? YES; Neutrophil % 1 % (38-83); RBC Morphology Normal (Normal)
[2016-12-29] MEDS: Ondansetron INJ* 2 MG/ML VIAL IV PRN (17:18)
[2016-12-29] MEDS ORDERED: Ibuprofen TAB* 800 MG PO ONE ×2 (18:04→18:05)
[2016-12-29] MEDS ORDERED: Vancomycin per Pharmacy* NOTE FOLLOW UP PRN (18:10)
--- NOTE | 2016-12-29 18:47 | PN ---
Subjective Date of Service: 12/29/16 Interval History: . Mr. Slaughter had a long day. + fever this afternoon --> discussed case with Faustino ([employer] Nazanin Garcia) who is in contact with patient, his and several family members. Patient requests to go to [facility], but there are no beds. Nazanin reassures patient he is being treated appropriately and patient/family affirm that belief. Mainly , they are concerned and want his oncology team to know what is going on. I assured we are communicating Nazanin Garcia NP (for Dr. Mckeon) [phone] (cell) Family History: Unchanged from Admission Social History: Unchanged from Admission Past Medical History: Unchanged from Admission Objective Active Medications: .Acetaminophen (Tylenol Tab*) 650 mg PO Q6H PRN PRN Reason: FEVER/PAIN Last Admin: 12/29/16 17:17 Dose: 650 mg Acyclovir (Zovirax Cap*) 200 mg PO BID [facility] Last Admin: 12/29/16 08:48 Dose: 200 mg Benzocaine (Orajel 10%*) 1 applic TOPICAL Q4H PRN PRN Reason: PAIN Clonazepam (Klonopin Tab(*)) 0.5 mg PO BEDTIME [facility] Last Admin: 12/28/16 20:05 Dose: 0.5 mg Escitalopram Oxalate (Lexapro (Nf)) 10 mg PO DAILY [facility] Last Admin: 12/29/16 08:48 Dose: 10 mg Fenofibrate (Tricor(Nf)) 48 mg PO DAILY [facility] Last Admin: 12/29/16 08:48 Dose: 48 mg Filgrastim-Sndz (Zarxio*) 480 mcg SUBCUT DAILY [facility] Last Admin: 12/29/16 08:46 Dose: 480 mcg Gabapentin (Neurontin Cap(*)) 100 mg PO TID [facility] Last Admin: 12/29/16 14:51 Dose: 100 mg Sodium Chloride (Ns 0.9% 1000 Ml*) 1,000 mls @ 125 mls/hr IV PER RATE [facility] Last Admin: 12/29/16 14:52 Dose: 125 mls/hr Sodium Chloride (Ns 0.9% 500 Ml Bag*) 500 mls @ 0 mls/hr IV KVO LIZA PRN Reason: KVO Last Admin: 12/27/16 18:53 Dose: 500 mls/hr Fluconazole/Sodium Chloride (Diflucan 200 Mg Ivpremix(*)) 200 mg in 100 mls @ 100 mls/hr IVPB Q24H [facility] Meropenem (Merrem 1 Gm Premix(*)) 1 gm in 50 mls @ 100 mls/hr IV Q8H [facility] Vancomycin HCl 1,500 mg/ (Sodium Chloride) 250 mls @ 166.667 mls/hr IVPB ONCE ONE PRN Reason: Protocol Stop: 12/29/16 20:44 Melatonin (Melatonin (Nf)) 3 mg PO BEDTIME PRN; Protocol PRN Reason: Sleep Multi-Ingredient Mouthwash/Gargle (Magic Mouth Was-Shon/Maal/Lido*) 5 ml SWISH SPIT Q4H PRN PRN Reason: MOUTH PAIN Last Admin: 12/28/16 09:08 Dose: 5 ml Nystatin (Nystatin Suspension*) 200,000 units PO QID [facility] Last Admin: 12/29/16 17:18 Dose: 200,000 units Omeprazole (Prilosec Cap*) 20 mg PO DAILY@0600 [facility] Last Admin: 12/29/16 05:53 Dose: 20 mg Ondansetron HCl (Zofran Inj*) 4 mg IV Q6H PRN PRN Reason: NAUSEA Last Admin: 12/29/16 17:18 Dose: 4 mg Oxycodone/Acetaminophen (Percocet 5/325 Tab*) 1 tab PO Q4H PRN PRN Reason: PAIN Last Admin: 12/29/16 11:25 Dose: 1 tab Oxycodone/Acetaminophen (Percocet 5/325 Tab*) 2 tab PO Q4H PRN PRN Reason: PAIN Last Admin: 12/29/16 07:36 Dose: 2 tab Pharmacy Consult (Vancomycin Per Pharmacy*) 1 note FOLLOW UP . PRN PRN Reason: PER PROTOCOL Ranitidine HCl (Ranitidine Hcl) 150 mg PO BEDTIME [facility] PRN Reason: Protocol Last Admin: 12/28/16 20:07 Dose: 150 mg Trimethoprim/Sulfamethoxazole (Bactrim Ds 800/160 Tab*) 1 tab PO MoWeFr@0900 [facility] Last Admin: 12/29/16 08:48 Dose: 1 tab Vital Signs 12/28/16 12/28/16 12/28/16 19:25 20:00 20:03 Temperature 99.6 F Pulse Rate 98 Respiratory 17 16 18 Rate Blood Pressure 119/61 (mmHg) O2 Sat by Pulse 100 Oximetry 12/28/16 12/28/16 12/28/16 20:04 20:05 22:03 Temperature Pulse Rate Respiratory 18 18 16 Rate Blood Pressure (mmHg) O2 Sat by Pulse Oximetry Appearance: NAD; alopecia 2/2 chemo Eyes: No Scleral Icterus Ears/Nose/Mouth/Throat: Clear Oropharnyx, - - R lateral tongue ulcer, unchanged Neck: Trachea Midline Respiratory: Symmetrical Chest Expansion and Respiratory Effort Cardiovascular: NL Sounds; No Murmurs; No JVD Abdominal: NL Sounds; No Tenderness; No Distention, - - obese Lymphatic: No Cervical Adenopathy Extremities: No Edema Skin: No Rash or Ulcers, - - scattered tatoos Neurological: Alert and Oriented x 3 Lines/Tubes/Other Access: Clean, Dry and Intact Peripheral IV, Clean, Dry and Intact Other Access - L chest port CDI Nutrition: Taking PO's Result Diagrams: 12/29/16 11:45 12/28/16 05:40 Additional Lab and Data: . Microbiology and Other Data: Microbiology 12/27/16 05:30 Aerobic Blood Culture - Preliminary Blood Venous No Growth Day 1 Anaerobic Blood Culture - Preliminary No Growth Day 1 Assess/Plan/Problems-Billing . 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 ANC ~0 on 12/28/2016 Antibiotics: - Meropenem 1 IV Q8 - Vanco 1500 mg IV once, then by pharm dosing protocol - Fluconazole 200 mg IV Daily. - Patient Problems (1) Neutropenic fever Current Visit: Yes Status: Acute Priority: High Code(s): D70.9 - NEUTROPENIA, UNSPECIFIED; R50.81 - FEVER PRESENTING WITH CONDITIONS CLASSIFIED ELSEWHERE Comment: - Meropenem 1 IV Q8 - Vanco 1500 mg IV once, then by pharm dosing protocol - Fluconazole 200 mg IV Daily. - IV acyclovir - Bactrim ppx. - BCX, UCX NGTD -- last drawm 12/29/16 - CXR without infiltrate - ongoing fevers, but responsive to acetaminophen. (2) B-cell acute lymphoblastic leukemia Current Visit: Yes Status: Acute Priority: High Code(s): C91.00 - ACUTE LYMPHOBLASTIC LEUKEMIA NOT HAVING ACHIEVED REMISSION (3) Oral lesion Current Visit: Yes Status: Acute Code(s): K13.70 - UNSPECIFIED LESIONS OF ORAL MUCOSA Comment: - following; oragel & magic mouthwash. (4) Headache Current Visit: Yes Status: Acute Priority: High Code(s): R51 - HEADACHE Comment: - percocet prn, no confusion noted, no nuchal regidity. (5) Pancytopenia due to chemotherapy Current Visit: Yes Status: Acute Priority: High Code(s): D61.810 - ANTINEOPLASTIC CHEMOTHERAPY INDUCED PANCYTOPENIA Comment: - platelet transfusion for plts < 10K - recheck ~ 30K. - neupogen ordered for ANC ~ 0 and pt reports he is scheduled for that on 2016. - Hgb > 8 and stable.
[2016-12-29] MEDS: Meropenem 1 GM PREMIX(*) 1 GM/50 ML BAG IV SCH (18:58)
[2016-12-29] MEDS ORDERED: Vancomycin(*) 1,500 MG in NS 0.9% 250 ML* 250 ML IVPB ONE (19:15)
[2016-12-29] MEDS: Fluconazole 200 MG IVPREMIX(*) 200 MG/100 ML BAG IVPB SCH (20:01)
[2016-12-29] MEDS: clonazePAM TAB(*) 0.5 MG PO SCH (21:26)
[2016-12-29] MEDS: RANITIDINE HCL 300 MG PO SCH (21:29)
[2016-12-30] MEDS: Meropenem 1 GM PREMIX(*) 1 GM/50 ML BAG IV SCH ×3 (04:06→17:56)
[2016-12-30] MEDS: NS 0.9% 1000 ML* 1,000 ML IV SCH (05:58)
[2016-12-30] MEDS: Vancomycin(*) 1,250 MG in NS 0.9% 250 ML* 250 ML IVPB SCH ×3 (05:58→21:56)
[2016-12-30] MEDS: Omeprazole CAP* 20 MG PO SCH (06:01)
[2016-12-30] MEDS: Acetaminophen TAB* 325 MG PO PRN ×3 (06:55→20:45)
[2016-12-30 07:23] LABS: Albumin 2.8 g/dL (3.2-5.2); BUN/Creatinine Ratio 12.5 (8-20); Calcium 7.9 mg/dL (8.6-10.3); EGFR African American 175.6 (>60); EGFR Non-African American 136.5 (>60); Globulin 1.8 g/dL (2-4); Hematocrit 19 % (42-52); Hemoglobin 6.7 g/dl (14.0-18.0); Mean Corpuscular HGB Conc 35 g/dl (31-36); Mean Corpuscular Hemoglobin 29 pg (27-31); Mean Corpuscular Volume 84 fL (80-94); Mean Platelet Volume 8 um3 (7.4-10.4); Red Blood Count 2.28 10^6/ul (4.0-5.4); Red Cell Distribution Width 13 % (10.5-15); Total Bilirubin 0.9 mg/dL (0.2-1.0); Total Protein 4.6 g/dL (6.4-8.9); White Blood Count 0.2 10^3/ul (3.5-10.8)
[2016-12-30 07:24] LABS: Add Diff/Slide Review? Manual Diff Added; Comments Flag Yes
[2016-12-30 08:10] LABS: Eosinophils % 1 % (0-6); Hypochromasia 2+; Neutrophil % 1 % (38-83); Reactive Lymph % 2 % (0-6)
[2016-12-30 08:11] LABS: Tear Drop Cells 1+
[2016-12-30] MEDS: Gabapentin CAP(*) 100 MG PO SCH ×3 (08:53→20:45)
[2016-12-30] MEDS: CMC: Escitalopram (NF) 10 MG TAB PO SCH (08:53)
[2016-12-30] MEDS: Acyclovir* 200 MG CAP PO SCH ×2 (08:53→20:46)
[2016-12-30] MEDS: FENOFIBRATE 48 MG PO SCH (08:54)
[2016-12-30] MEDS: Ibuprofen TAB* 600 MG PO PRN (08:54)
[2016-12-30] MEDS: Nystatin SUSPENSION* 100000 UNITS/ML 5 ML UDC PO SCH ×4 (08:55→20:47)
[2016-12-30] MEDS ORDERED: SUMAtriptan TAB* 50 MG PO ONE (09:43)
[2016-12-30] MEDS: FILGRASTIM-SNDZ* 480 MCG/0.8 ML SYRINGE SUBCUT SCH (10:24)
[2016-12-30] MEDS: Ondansetron INJ* 2 MG/ML VIAL IV PRN ×2 (15:31→21:40)
--- NOTE | 2016-12-30 16:53 | PN ---
Subjective Date of Service: 12/30/16 Interval History: Remains febrile Headache this AM like migraines except worse No N/V, +photophobia Family History: Unchanged from Admission Social History: Unchanged from Admission Past Medical History: Unchanged from Admission Objective Active Medications: Acetaminophen (Tylenol Tab*) 650 mg PO Q6H PRN PRN Reason: FEVER/PAIN Last Admin: 12/30/16 15:02 Dose: 650 mg Acyclovir (Zovirax Cap*) 200 mg PO BID [facility] Last Admin: 12/30/16 08:53 Dose: 200 mg Benzocaine (Orajel 10%*) 1 applic TOPICAL Q4H PRN PRN Reason: PAIN Clonazepam (Klonopin Tab(*)) 0.5 mg PO BEDTIME [facility] Last Admin: 12/29/16 21:26 Dose: 0.5 mg Escitalopram Oxalate (Lexapro (Nf)) 10 mg PO DAILY [facility] Last Admin: 12/30/16 08:53 Dose: 10 mg Fenofibrate (Tricor(Nf)) 48 mg PO DAILY [facility] Last Admin: 12/30/16 08:54 Dose: 48 mg Filgrastim-Sndz (Zarxio*) 480 mcg SUBCUT DAILY [facility] Last Admin: 12/30/16 10:24 Dose: 480 mcg Gabapentin (Neurontin Cap(*)) 100 mg PO TID [facility] Last Admin: 12/30/16 14:39 Dose: 100 mg Sodium Chloride (Ns 0.9% 1000 Ml*) 1,000 mls @ 125 mls/hr IV PER RATE [facility] Last Admin: 12/30/16 05:58 Dose: 125 mls/hr Sodium Chloride (Ns 0.9% 500 Ml Bag*) 500 mls @ 0 mls/hr IV KVO LIZA PRN Reason: KVO Last Admin: 12/27/16 18:53 Dose: 500 mls/hr Fluconazole/Sodium Chloride (Diflucan 200 Mg Ivpremix(*)) 200 mg in 100 mls @ 100 mls/hr IVPB Q24H [facility] Last Admin: 12/29/16 20:01 Dose: 100 mls/hr Meropenem (Merrem 1 Gm Premix(*)) 1 gm in 50 mls @ 100 mls/hr IV Q8H [facility] Last Admin: 12/30/16 10:25 Dose: 100 mls/hr Vancomycin HCl 1,250 mg/ (Sodium Chloride) 250 mls @ 166.667 mls/hr IVPB Q8H [facility] Last Admin: 12/30/16 14:40 Dose: 166.667 mls/hr Ibuprofen (Motrin Tab*) 600 mg PO Q6H PRN PRN Reason: PAIN Last Admin: 12/30/16 08:54 Dose: 600 mg Melatonin (Melatonin (Nf)) 3 mg PO BEDTIME PRN; Protocol PRN Reason: Sleep Multi-Ingredient Mouthwash/Gargle (Magic Mouth Was-Shon/Maal/Lido*) 5 ml SWISH SPIT Q4H PRN PRN Reason: MOUTH PAIN Last Admin: 12/28/16 09:08 Dose: 5 ml Nystatin (Nystatin Suspension*) 200,000 units PO QID [facility] Last Admin: 12/30/16 13:43 Dose: Not Given Omeprazole (Prilosec Cap*) 20 mg PO DAILY@0600 [facility] Last Admin: 12/30/16 06:01 Dose: 20 mg Ondansetron HCl (Zofran Inj*) 4 mg IV Q6H PRN PRN Reason: NAUSEA Last Admin: 12/30/16 15:31 Dose: 4 mg Oxycodone/Acetaminophen (Percocet 5/325 Tab*) 1 tab PO Q4H PRN PRN Reason: PAIN Last Admin: 12/29/16 11:25 Dose: 1 tab Oxycodone/Acetaminophen (Percocet 5/325 Tab*) 2 tab PO Q4H PRN PRN Reason: PAIN Last Admin: 12/29/16 07:36 Dose: 2 tab Pharmacy Consult (Vancomycin Per Pharmacy*) 1 note FOLLOW UP . PRN PRN Reason: PER PROTOCOL Pharmacy Profile Note (Vancomycin Trough Check) 1 note FOLLOW UP 0530 ONE Stop: 12/31/16 05:31 Ranitidine HCl (Ranitidine Hcl) 150 mg PO BEDTIME [facility] PRN Reason: Protocol Last Admin: 12/29/16 21:29 Dose: 150 mg Trimethoprim/Sulfamethoxazole (Bactrim Ds 800/160 Tab*) 1 tab PO MoWeFr@0900 [facility] Last Admin: 12/29/16 08:48 Dose: 1 tab Vital Signs 12/29/16 12/29/16 12/29/16 16:51 17:09 18:06 Temperature 101.5 F 102.4 F Pulse Rate Respiratory 16 Rate Blood Pressure (mmHg) O2 Sat by Pulse Oximetry 12/29/16 12/29/16 12/29/16 19:08 20:02 21:26 Temperature 100.2 F 99.7 F Pulse Rate 93 Respiratory 20 16 Rate Blood Pressure 127/68 (mmHg) O2 Sat by Pulse 100 Oximetry 12/29/16 12/30/16 12/30/16 23:26 00:24 06:21 Temperature 98.4 F Pulse Rate 70 Respiratory 16 12 16 Rate Blood Pressure 116/55 (mmHg) O2 Sat by Pulse 100 Oximetry 12/30/16 12/30/16 12/30/16 08:12 08:53 09:30 Temperature 100.1 F Pulse Rate 91 Respiratory 17 16 16 Rate Blood Pressure 118/65 (mmHg) O2 Sat by Pulse 99 Oximetry 12/30/16 12/30/16 12/30/16 11:29 14:37 14:39 Temperature 98.2 F 99.0 F Pulse Rate 69 77 Respiratory 14 16 16 Rate Blood Pressure 121/67 128/70 (mmHg) O2 Sat by Pulse 99 100 Oximetry Oxygen Devices in Use Now: None Appearance: NAD Eyes: No Scleral Icterus, PERRLA Ears/Nose/Mouth/Throat: NL Teeth, Lips, Gums, Clear Oropharnyx, Mucous Membranes Moist Neck: NL Appearance and Movements; NL JVP, Trachea Midline Respiratory: Symmetrical Chest Expansion and Respiratory Effort, Clear to Auscultation Cardiovascular: NL Sounds; No Murmurs; No JVD, RRR Abdominal: NL Sounds; No Tenderness; No Distention, No Hepatosplenomegaly Lymphatic: No Cervical Adenopathy Extremities: No Edema Neurological: Alert and Oriented x 3 Result Diagrams: 12/30/16 06:35 12/30/16 06:35 Additional Lab and Data: . Microbiology and Other Data: Microbiology 12/27/16 05:30 Aerobic Blood Culture - Preliminary Blood Venous No Growth Day 1 Anaerobic Blood Culture - Preliminary No Growth Day 1 Assess/Plan/Problems-Billing . 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 - Patient Problems (1) Headache Comment: imitrex x 1 12/30 - percocet prn (2) Neutropenic fever Comment: - Meropenem 1 IV Q8 - Vanco 1500 mg IV once, then by pharm dosing protocol - Fluconazole 200 mg IV Daily. - IV acyclovir/PO bactrim Neupogen 12/30 - Bactrim ppx. - BCX, UCX NGTD -- last drawm 12/29/16 - CXR without infiltrate - ongoing fevers, but responsive to acetaminophen. (3) Oral lesion Comment: - following; oragel & magic mouthwash. (4) Pancytopenia due to chemotherapy Comment: - platelet transfusion for plts < 10K Transfuse 1 unit PRBC 12/30 neuropogen Status and Disposition: Discussed care with [facility]. Accepted but no bed availability at this time.
[2016-12-30] MEDS: oxyCODONE/Acetamin 5/325 MG* TAB PO PRN (17:04)
[2016-12-30] MEDS: Fluconazole 200 MG IVPREMIX(*) 200 MG/100 ML BAG IVPB SCH (20:36)
[2016-12-30] MEDS: RANITIDINE HCL 300 MG PO SCH (20:36)
[2016-12-30] MEDS: clonazePAM TAB(*) 0.5 MG PO SCH (20:44)
[2016-12-30] MEDS: diPHENhydraMINE PO* 25 MG PO PRN (21:56)
[2016-12-30] MEDS ORDERED: Acyclovir* 200 MG CAP PO ONE (22:00)
[2016-12-31] MEDS: Ibuprofen TAB* 600 MG PO PRN ×2 (00:18→06:28)
[2016-12-31] MEDS: NS 0.9% 1000 ML* 1,000 ML IV SCH ×2 (00:20→10:30)
--- NOTE | 2016-12-31 00:57 | DS ---
DISCHARGE/TRANSFER SUMMARY: DATE OF ADMISSION: 12/26/16 DATE OF TRANSFER: Planned for 12/30 to 12/31 when bed available for transfer. PRIMARY CARE PHYSICIAN: Dr. Manuela Mckeon at [facility]. REASON FOR TRANSFER: 1. Access to tertiary care center with liquid tumor specialists as well as continued access to pediatric clinical trial for lymphoma. 2. This is the closest location to receive said services. MEDICATIONS ON DISCHARGE: 1. Acetaminophen as needed. 2. Acyclovir 200 mg twice daily. 3. Benzocaine oral gel every 4 hours as needed. 4. Klonopin 0.5 mg at bedtime. 5. Lexapro 10 mg daily. 6. Tricor 48 mg daily. 7. Filgrastim 480 mcg, first dose 12/29/16. 8. Fluconazole 200 mg IV daily. 9. Gabapentin 100 mg 3 times a day. 10. Ibuprofen 600 mg every 6 hours as needed. 11. Melatonin 3 mg at bedtime as needed. 12. Meropenem 1 g every 8 hours. 13. Magic mouthwash every 4 hours as needed. 14. Nystatin suspension 200,000 units 4 times a day. 15. Omeprazole 20 mg daily. 16. Ondansetron every 6 hours as needed. 17. Percocet 1 to 2 tabs every 4 hours as needed for pain. 18. Vancomycin per pharmacy dosing. 19. Ranitidine 150 mg at bedtime. 20. Sodium chloride IV normal saline 125 cc per hour. 21. Bactrim double strength 1 tab Thursday, Thursday, Thursday. PERTINENT IMAGING: Chest x-ray 12/28/16: No evidence for pneumonia. No evidence for acute intrathoracic disease. PERTINENT VITAL SIGNS: T-max 102.5, last fever 100.1 on 12/30/16 at 8:12 in the morning. PERTINENT LABORATORY DATA: White blood cell count 0.2, 1% neutrophils, 94% lymphocytes, platelets 18, nadired at 9, received 2 units of apheresis platelets. Hemoglobin 6.7. PERTINENT MICROBIOLOGY DATA: Four blood cultures, no growth to date. One urine culture, no growth to date. BLOOD PRODUCTS: 1 unit of platelets, 1 unit of packed red blood cells received. HISTORY OF PRESENT ILLNESS AND HOSPITAL COURSE: This is a pleasant 21-year-old man, currently receiving treatment at [facility] for acute lymphoblastic B cell lymphoma presented to the hospital with neutropenic fever and as indicated above. He was started on cefepime which was broadened to vancomycin, his fevers continued. Cefepime was broadened to meropenem on . IV fluconazole was also started on 12/29. He was continued on prophylactic doses of acyclovir and Bactrim. His fevers continued. Hospital course was also complicated by migraine headache, for which he received Percocet as well as sumatriptan. Hospital course was also complicated by pancytopenia, for which he received 1 unit of apheresis platelets and 1 unit of leukocyte reduced packed red blood cells without incident. No other complications during the patient's hospital stay. He was seen in consultation by our rattling machine tender/ oncologist including Dr. Poole as well as Dr. Perkins. On transfer, please continue treatment of neutropenic fever as deemed necessary. Follow counts for recovery. Continue leukemia treatment as part of your own protocol. Thank you for assisting in the care of this patient. Please do not hesitate to call for further questions or concerns about patient's hospital course while in [facility]. [id number]/[facility] #: [id number]
[2016-12-31] MEDS: Ondansetron INJ* 2 MG/ML VIAL IV PRN ×2 (02:49→21:49)
[2016-12-31] MEDS: Acetaminophen TAB* 325 MG PO PRN ×2 (02:49→20:18)
[2016-12-31] MEDS: Meropenem 1 GM PREMIX(*) 1 GM/50 ML BAG IV SCH ×3 (02:49→18:53)
[2016-12-31] MEDS: oxyCODONE/Acetamin 5/325 MG* TAB PO PRN ×2 (02:50→12:47)
[2016-12-31] MEDS ORDERED: Vancomycin Trough Check NOTE FOLLOW UP ONE (05:30)
[2016-12-31 05:43] LABS: Hematocrit 19 % (42-52); Hemoglobin 6.6 g/dl (14.0-18.0); Mean Corpuscular HGB Conc 35 g/dl (31-36); Mean Corpuscular Hemoglobin 30 pg (27-31); Mean Corpuscular Volume 85 fL (80-94); Mean Platelet Volume 10 um3 (7.4-10.4); Red Blood Count 2.23 10^6/ul (4.0-5.4); Red Cell Distribution Width 13 % (10.5-15); White Blood Count 0.2 10^3/ul (3.5-10.8)
[2016-12-31 05:47] LABS: Comments Flag Yes
[2016-12-31 05:53] LABS: BUN/Creatinine Ratio 10.4 (8-20); Calcium 7.7 mg/dL (8.6-10.3); EGFR African American 190.8 (>60); EGFR Non-African American 148.3 (>60); Potassium 3.6 mmol/L (3.5-5.0)
[2016-12-31 06:12] LABS: Vancomycin Trough 8.6 mcg/mL
[2016-12-31] MEDS: Vancomycin(*) 1,250 MG in NS 0.9% 250 ML* 250 ML IVPB SCH ×4 (06:28→23:14)
[2016-12-31] MEDS: Omeprazole CAP* 20 MG PO SCH (06:28)
[2016-12-31] MEDS: Acyclovir* 400 MG TAB PO SCH ×2 (09:27→23:20)
[2016-12-31] MEDS: Gabapentin CAP(*) 100 MG PO SCH ×3 (09:27→23:20)
[2016-12-31] MEDS: Nystatin SUSPENSION* 100000 UNITS/ML 5 ML UDC PO SCH ×4 (09:29→23:23)
[2016-12-31] MEDS: CMC: Escitalopram (NF) 10 MG TAB PO SCH (09:33)
[2016-12-31] MEDS: FENOFIBRATE 48 MG PO SCH (09:33)
[2016-12-31] MEDS: Sulfamethox/Trimethoprim DS 800/160* TAB PO SCH (09:35)
[2016-12-31] MEDS: FILGRASTIM-SNDZ* 480 MCG/0.8 ML SYRINGE SUBCUT SCH (10:24)
[2016-12-31] MEDS ORDERED: SUMAtriptan TAB* 50 MG PO ONE (13:37)
--- NOTE | 2016-12-31 17:10 | PN ---
Subjective Date of Service: 12/31/16 Interval History: Seen and examined with brother at bedside GARSIA resolved with imitrex yesterday. He thinks he may be getting another migraine now. . Had abdominal pain yesterday that is now resolved No other focal complaints Family History: Unchanged from Admission Social History: Unchanged from Admission Past Medical History: Unchanged from Admission Objective Active Medications: Acetaminophen (Tylenol Tab*) 650 mg PO Q6H PRN PRN Reason: FEVER/PAIN Last Admin: 12/31/16 02:49 Dose: 650 mg Acyclovir (Zovirax Tab*) 400 mg PO BID [facility] Last Admin: 12/31/16 09:27 Dose: 400 mg Benzocaine (Orajel 10%*) 1 applic TOPICAL Q4H PRN PRN Reason: PAIN Clonazepam (Klonopin Tab(*)) 0.5 mg PO BEDTIME [facility] Last Admin: 12/30/16 20:44 Dose: 0.5 mg Diphenhydramine HCl (Benadryl Po*) 25 mg PO Q6H PRN PRN Reason: ITCHING Last Admin: 12/30/16 21:56 Dose: 25 mg Escitalopram Oxalate (Lexapro (Nf)) 10 mg PO DAILY [facility] Last Admin: 12/31/16 09:33 Dose: 10 mg Fenofibrate (Tricor(Nf)) 48 mg PO DAILY [facility] Last Admin: 12/31/16 09:33 Dose: 48 mg Filgrastim-Sndz (Zarxio*) 480 mcg SUBCUT DAILY [facility] Last Admin: 12/31/16 10:24 Dose: 480 mcg Gabapentin (Neurontin Cap(*)) 100 mg PO TID [facility] Last Admin: 12/31/16 15:21 Dose: 100 mg Heparin Sodium (Porcine) (Heparin Flush Port (Ivad)) 5 ml FLUSH DAILY [facility] PRN Reason: Protocol Sodium Chloride (Ns 0.9% 1000 Ml*) 1,000 mls @ 125 mls/hr IV PER RATE [facility] Last Admin: 12/31/16 10:30 Dose: 125 mls/hr Sodium Chloride (Ns 0.9% 500 Ml Bag*) 500 mls @ 0 mls/hr IV KVO LIZA PRN Reason: KVO Last Admin: 12/27/16 18:53 Dose: 500 mls/hr Fluconazole/Sodium Chloride (Diflucan 200 Mg Ivpremix(*)) 200 mg in 100 mls @ 100 mls/hr IVPB Q24H [facility] Last Admin: 12/30/16 20:36 Dose: 100 mls/hr Meropenem (Merrem 1 Gm Premix(*)) 1 gm in 50 mls @ 100 mls/hr IV Q8H [facility] Last Admin: 12/31/16 10:24 Dose: 100 mls/hr Vancomycin HCl 1,250 mg/ (Sodium Chloride) 250 mls @ 166.667 mls/hr IVPB Q6H [facility] Last Admin: 12/31/16 12:36 Dose: 166.667 mls/hr Ibuprofen (Motrin Tab*) 600 mg PO Q6H PRN PRN Reason: PAIN Last Admin: 12/31/16 06:28 Dose: 600 mg Melatonin (Melatonin (Nf)) 3 mg PO BEDTIME PRN; Protocol PRN Reason: Sleep Multi-Ingredient Mouthwash/Gargle (Magic Mouth Was-Shon/Maal/Lido*) 5 ml SWISH SPIT Q4H PRN PRN Reason: MOUTH PAIN Last Admin: 12/28/16 09:08 Dose: 5 ml Nystatin (Nystatin Suspension*) 200,000 units PO QID [facility] Last Admin: 12/31/16 12:47 Dose: 200,000 units Omeprazole (Prilosec Cap*) 20 mg PO DAILY@0600 [facility] Last Admin: 12/31/16 06:28 Dose: 20 mg Ondansetron HCl (Zofran Inj*) 4 mg IV Q6H PRN PRN Reason: NAUSEA Last Admin: 12/31/16 02:49 Dose: 4 mg Oxycodone/Acetaminophen (Percocet 5/325 Tab*) 1 tab PO Q4H PRN PRN Reason: PAIN Last Admin: 12/31/16 02:50 Dose: 1 tab Oxycodone/Acetaminophen (Percocet 5/325 Tab*) 2 tab PO Q4H PRN PRN Reason: PAIN Last Admin: 12/31/16 12:47 Dose: 2 tab Pharmacy Consult (Vancomycin Per Pharmacy*) 1 note FOLLOW UP . PRN PRN Reason: PER PROTOCOL Pharmacy Profile Note (Vancomycin Trough Check) 1 note FOLLOW UP 0530 ONE Stop: 01/03/17 05:31 Ranitidine HCl (Ranitidine Hcl) 150 mg PO BEDTIME [facility] PRN Reason: Protocol Last Admin: 12/30/16 20:36 Dose: 150 mg Trimethoprim/Sulfamethoxazole (Bactrim Ds 800/160 Tab*) 1 tab PO MoWeFr@0900 [facility] Last Admin: 12/31/16 09:35 Dose: 1 tab Vital Signs 12/30/16 12/30/16 12/30/16 19:04 20:00 20:44 Temperature Pulse Rate Respiratory 20 16 20 Rate Blood Pressure (mmHg) O2 Sat by Pulse Oximetry 12/30/16 12/30/16 12/30/16 20:45 21:56 22:44 Temperature Pulse Rate Respiratory 20 20 16 Rate Blood Pressure (mmHg) O2 Sat by Pulse Oximetry 12/30/16 12/31/16 12/31/16 23:45 02:50 04:21 Temperature 100.2 F 99.2 F Pulse Rate 103 Respiratory 16 16 Rate Blood Pressure 112/61 (mmHg) O2 Sat by Pulse 99 Oximetry 12/31/16 12/31/16 12/31/16 04:50 07:29 09:27 Temperature 97.8 F Pulse Rate 66 Respiratory 16 16 16 Rate Blood Pressure 98/51 (mmHg) O2 Sat by Pulse 99 Oximetry 12/31/16 12/31/16 12/31/16 11:27 12:11 12:47 Temperature 98.1 F Pulse Rate 74 Respiratory 16 16 16 Rate Blood Pressure 127/64 (mmHg) O2 Sat by Pulse 99 Oximetry 12/31/16 12/31/16 12/31/16 14:47 15:16 15:21 Temperature 98.2 F Pulse Rate 80 Respiratory 16 16 16 Rate Blood Pressure 111/49 (mmHg) O2 Sat by Pulse 100 Oximetry 12/31/16 15:49 Temperature 98.5 F Pulse Rate 89 Respiratory 16 Rate Blood Pressure 110/58 (mmHg) O2 Sat by Pulse 100 Oximetry Oxygen Devices in Use Now: None Appearance: NAD Eyes: No Scleral Icterus, PERRLA Ears/Nose/Mouth/Throat: NL Teeth, Lips, Gums, Clear Oropharnyx, Mucous Membranes Moist Neck: NL Appearance and Movements; NL JVP, Trachea Midline Respiratory: Symmetrical Chest Expansion and Respiratory Effort, Clear to Auscultation Cardiovascular: NL Sounds; No Murmurs; No JVD, RRR Abdominal: NL Sounds; No Tenderness; No Distention, No Hepatosplenomegaly Lymphatic: No Cervical Adenopathy Extremities: No Edema Skin: No Rash or Ulcers Neurological: Alert and Oriented x 3 Result Diagrams: 12/31/16 05:20 12/31/16 05:20 Additional Lab and Data: . Microbiology and Other Data: Microbiology 12/27/16 05:30 Aerobic Blood Culture - Preliminary Blood Venous No Growth Day 1 Anaerobic Blood Culture - Preliminary No Growth Day 1 Assess/Plan/Problems-Billing . 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 - Patient Problems (1) Neutropenic fever Comment: - Meropenem 1 IV Q8 - Vanco 1500 mg IV once, then by pharm dosing protocol - Fluconazole 200 mg IV Daily. - IV acyclovir/PO bactrim Neupogen 12/30 - Bactrim ppx. - BCX, UCX NGTD -- last drawm 12/29/16 - CXR without infiltrate - ongoing fevers, but responsive to acetaminophen. (2) Headache Comment: imitrex 12/30 with relief. Additional dose 12/31 percocet prn (3) Oral lesion Comment: improving; oragel & magic mouthwash. (4) Pancytopenia due to chemotherapy Comment: Unit plts and 1 unit PRBC 12/31 - recheck CBC in evening platelet transfusion for plts < 10K PRBC for Hb <7 neuropogen started 12/29 Status and Disposition: Discussed care with [place]. Accepted but no bed availability at this time.
[2016-12-31 19:05] LABS: Hematocrit 25 % (42-52); Hemoglobin 8.6 g/dl (14.0-18.0); Mean Corpuscular HGB Conc 35 g/dl (31-36); Mean Corpuscular Hemoglobin 29 pg (27-31); Mean Corpuscular Volume 84 fL (80-94); Mean Platelet Volume 9 um3 (7.4-10.4); Red Blood Count 2.94 10^6/ul (4.0-5.4); Red Cell Distribution Width 14 % (10.5-15); White Blood Count 0.3 10^3/ul (3.5-10.8)
[2016-12-31 19:19] LABS: Comments Flag Yes
[2016-12-31 19:21] LABS: Add Diff/Slide Review? Manual Diff Added
[2016-12-31 20:23] LABS: Neutrophil % 5 % (38-83)
[2016-12-31 20:25] LABS: RBC Morphology Normal (Normal)
[2016-12-31] MEDS: clonazePAM TAB(*) 0.5 MG PO SCH (23:19)
[2016-12-31] MEDS: RANITIDINE HCL 300 MG PO SCH (23:21)
[2016-12-31] MEDS: diPHENhydraMINE PO* 25 MG PO PRN (23:57)
[2017-01-01] MEDS ORDERED: Fluconazole 200 MG IVPREMIX(*) 200 MG/100 ML BAG IVPB SCH (01:00)
[2017-01-01] MEDS: NS 0.9% 1000 ML* 1,000 ML IV SCH ×2 (03:14→10:40)
[2017-01-01] MEDS: Meropenem 1 GM PREMIX(*) 1 GM/50 ML BAG IV SCH ×5 (03:14→20:24)
[2017-01-01] MEDS: Vancomycin(*) 1,250 MG in NS 0.9% 250 ML* 250 ML IVPB SCH ×3 (05:11→18:04)
[2017-01-01] MEDS: Omeprazole CAP* 20 MG PO SCH (05:12)
[2017-01-01] MEDS: Acetaminophen TAB* 325 MG PO PRN ×2 (05:12→14:28)
[2017-01-01 05:51] LABS: Comments Flag Yes; Hematocrit 23 % (42-52); Hemoglobin 7.9 g/dl (14.0-18.0); Mean Corpuscular HGB Conc 34 g/dl (31-36); Mean Corpuscular Hemoglobin 29 pg (27-31); Mean Corpuscular Volume 85 fL (80-94); Mean Platelet Volume 9 um3 (7.4-10.4); Red Blood Count 2.72 10^6/ul (4.0-5.4); Red Cell Distribution Width 13 % (10.5-15); White Blood Count 0.3 10^3/ul (3.5-10.8)
[2017-01-01 06:03] LABS: BUN/Creatinine Ratio 7.9 (8-20); Calcium 7.9 mg/dL (8.6-10.3); EGFR African American 164.9 (>60); EGFR Non-African American 128.3 (>60); Potassium 3.7 mmol/L (3.5-5.0)
[2017-01-01] MEDS: Fluconazole 200 MG IVPREMIX(*) 200 MG/100 ML BAG IVPB SCH (06:52)
[2017-01-01] MEDS: Acyclovir* 400 MG TAB PO SCH ×2 (09:21→21:16)
[2017-01-01] MEDS: Nystatin SUSPENSION* 100000 UNITS/ML 5 ML UDC PO SCH ×4 (09:23→21:19)
[2017-01-01] MEDS: Gabapentin CAP(*) 100 MG PO SCH ×3 (09:25→21:17)
[2017-01-01] MEDS: CMC: Escitalopram (NF) 10 MG TAB PO SCH (09:27)
[2017-01-01] MEDS: FENOFIBRATE 48 MG PO SCH (09:27)
[2017-01-01] MEDS: FILGRASTIM-SNDZ* 480 MCG/0.8 ML SYRINGE SUBCUT SCH (09:38)
[2017-01-01] MEDS ORDERED: SUMAtriptan TAB* 50 MG PO ONE (10:00)
--- NOTE | 2017-01-01 10:57 | PN ---
Progress Note - Progress Note SOAP: Subjective: []Bored. Sick of being here. Headaches like migraines, resolving with Sumatriptan. Temp. last night with blood transfusion. Pt. feels very much like this was a reaction and not infection. Family very concerned about transfer. Port hasn't been giving blood return, though flushes well and infusing easily. Medications: Acetaminophen (Tylenol Tab*) 650 mg PO Q6H PRN PRN Reason: FEVER/PAIN Last Admin: 01/01/17 05:12 Dose: 650 mg Acyclovir (Zovirax Tab*) 400 mg PO BID [facility] Last Admin: 01/01/17 09:21 Dose: 400 mg Benzocaine (Orajel 10%*) 1 applic TOPICAL Q4H PRN PRN Reason: PAIN Clonazepam (Klonopin Tab(*)) 0.5 mg PO BEDTIME [facility] Last Admin: 12/31/16 23:19 Dose: 0.5 mg Diphenhydramine HCl (Benadryl Po*) 25 mg PO Q6H PRN PRN Reason: ITCHING Last Admin: 12/31/16 23:57 Dose: 25 mg Escitalopram Oxalate (Lexapro (Nf)) 10 mg PO DAILY [facility] Last Admin: 01/01/17 09:27 Dose: 10 mg Fenofibrate (Tricor(Nf)) 48 mg PO DAILY [facility] Last Admin: 01/01/17 09:27 Dose: 48 mg Filgrastim-Sndz (Zarxio*) 480 mcg SUBCUT DAILY [facility] Last Admin: 01/01/17 09:38 Dose: 480 mcg Gabapentin (Neurontin Cap(*)) 100 mg PO TID [facility] Last Admin: 01/01/17 09:25 Dose: 100 mg Heparin Sodium (Porcine) (Heparin Flush Port (Ivad)) 5 ml FLUSH DAILY [facility] PRN Reason: Protocol Last Admin: 01/01/17 09:24 Dose: Not Given Sodium Chloride (Ns 0.9% 1000 Ml*) 1,000 mls @ 125 mls/hr IV PER RATE [facility] Last Admin: 01/01/17 10:40 Dose: 125 mls/hr Sodium Chloride (Ns 0.9% 500 Ml Bag*) 500 mls @ 0 mls/hr IV KVO LIZA PRN Reason: KVO Last Admin: 12/27/16 18:53 Dose: 500 mls/hr Meropenem (Merrem 1 Gm Premix(*)) 1 gm in 50 mls @ 100 mls/hr IV Q8H [facility] Last Admin: 01/01/17 10:36 Dose: 100 mls/hr Vancomycin HCl 1,250 mg/ (Sodium Chloride) 250 mls @ 166.667 mls/hr IVPB Q6H [facility] Last Admin: 01/01/17 05:11 Dose: 166.667 mls/hr Fluconazole/Sodium Chloride (Diflucan 200 Mg Ivpremix(*)) 200 mg in 100 mls @ 100 mls/hr IVPB 0100 [facility] Last Admin: 01/01/17 01:28 Dose: 100 mls/hr Melatonin (Melatonin (Nf)) 3 mg PO BEDTIME PRN; Protocol PRN Reason: Sleep Multi-Ingredient Mouthwash/Gargle (Magic Mouth Was-Shon/Maal/Lido*) 5 ml SWISH SPIT Q4H PRN PRN Reason: MOUTH PAIN Last Admin: 12/28/16 09:08 Dose: 5 ml Nystatin (Nystatin Suspension*) 200,000 units PO QID [facility] Last Admin: 01/01/17 09:23 Dose: 200,000 units Omeprazole (Prilosec Cap*) 20 mg PO DAILY@0600 [facility] Last Admin: 01/01/17 05:12 Dose: 20 mg Ondansetron HCl (Zofran Inj*) 4 mg IV Q6H PRN PRN Reason: NAUSEA Last Admin: 12/31/16 21:49 Dose: 4 mg Oxycodone/Acetaminophen (Percocet 5/325 Tab*) 1 tab PO Q4H PRN PRN Reason: PAIN Last Admin: 12/31/16 02:50 Dose: 1 tab Oxycodone/Acetaminophen (Percocet 5/325 Tab*) 2 tab PO Q4H PRN PRN Reason: PAIN Last Admin: 12/31/16 12:47 Dose: 2 tab Pharmacy Consult (Vancomycin Per Pharmacy*) 1 note FOLLOW UP . PRN PRN Reason: PER PROTOCOL Pharmacy Profile Note (Vancomycin Trough Check) 1 note FOLLOW UP 0530 ONE Stop: 01/02/17 05:31 Ranitidine HCl (Ranitidine Hcl) 150 mg PO BEDTIME [facility] PRN Reason: Protocol Last Admin: 12/31/16 23:21 Dose: 150 mg Trimethoprim/Sulfamethoxazole (Bactrim Ds 800/160 Tab*) 1 tab PO MoWeFr@0900 [facility] Last Admin: 12/31/16 09:35 Dose: 1 tab Objective: [] Vital Signs Temp Pulse Resp BP Pulse Ox 100.1 F 92 16 111/60 93 01/01/17 07:30 01/01/17 07:30 01/01/17 09:25 01/01/17 07:30 01/01/17 07:30 A&Ox3, EOMI, CHRISTIANSON, neuro grossly non-focal HRR, no murmur noted LS clear bilat. Port LCW appears benign, flushes with no blood return -- deaccessed and reaccessed by this health science writer with 20 g. 1 in. cam needle, flushes easily and scant blood return obtained. Laboratory Results - last 24 hr 12/30/16 12/31/16 12/31/16 06:35 18:20 18:20 WBC 0.3 L RBC 2.94 L Hgb 8.6 L Hct 25 L MCV 84 MCH 29 MCHC 35 RDW 14 Plt Count 10 L* MPV 9 Neut % (Auto) Lymph % (Auto) [place] % (Auto) Eos % (Auto) Baso % (Auto) Absolute Neuts (auto) 0 L* Absolute Lymphs (auto) 0.3 L Absolute Monos (auto) 0 Absolute Eos (auto) 0 Absolute Basos (auto) 0 Absolute Nucleated RBC 0 Neutrophils % 5 L Lymphocytes % 93 H Monocytes % 2 Nucleated RBC % Normal RBC Morphology Normal Sodium Potassium Chloride Carbon Dioxide Anion Gap BUN Creatinine Est GFR ( Amer) Est GFR (Non-Af Amer) BUN/Creatinine Ratio Glucose Calcium Blood Type O Positive Antibody Screen Negative Crossmatch See Detail Donor Unit # [id number] Post-Trans Blood Type O Positive Post-Trans CAN Negative 01/01/17 01/01/17 05:01 05:01 WBC 0.3 L RBC 2.72 L Hgb 7.9 L Hct 23 L MCV 85 MCH 29 MCHC 34 RDW 13 Plt Count 13 L* MPV 9 Neut % (Auto) 6.3 L Lymph % (Auto) 87.3 H [place] % (Auto) 6.2 Eos % (Auto) 0.2 Baso % (Auto) 0 Absolute Neuts (auto) 0 L* Absolute Lymphs (auto) 0.3 L Absolute Monos (auto) 0 Absolute Eos (auto) 0 Absolute Basos (auto) 0 Absolute Nucleated RBC 0 Neutrophils % Lymphocytes % Monocytes % Nucleated RBC % 0.2 Normal RBC Morphology Sodium 132 L Potassium 3.7 Chloride 100 L Carbon Dioxide 28 Anion Gap 4 BUN 6 Creatinine 0.76 Est GFR ( Amer) 164.9 Est GFR (Non-Af Amer) 128.3 BUN/Creatinine Ratio 7.9 L Glucose 98 Calcium 7.9 L Blood Type Antibody Screen Crossmatch Donor Unit # Post-Trans Blood Type Post-Trans CAN Assessment: []21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 He had recurrent fevers overnight with slight decrease in BP and HR to 100bpm, no specific symptoms otherwise. Plan: []1. Suggest Consulting Infectious Disease: question of need to broaden anti- virals and anti-fungals. If counts were higher would consider LP to eval. headaches, but with low platelets hold off. 2. Pancytopenia: chemotherapy induced, slow recovery. Cont. Neupogen, avoid NSAIDs with plt. <60. 3. Port: Likely fibrin sheath, however hold off on cathflo for now with plt. 13K (would consider if >30K however), if any difficulty flushes suggest port study Disposition: Accepted @ [place] for transfer, however no bed available - reviewed with pt. and family.
--- NOTE | 2017-01-01 16:34 | PN ---
Subjective Date of Service: 01/01/17 Interval History: Events reviewed. Elevated temperature after receipt of platlets. Thought to be transfusion reaction and transfusion halted. Pt is frustrated with slow improvement. He wants to leave. Briefly discussed AMA with nursing however changed his mind when seen by this author. Family History: Unchanged from Admission Social History: Unchanged from Admission Past Medical History: Unchanged from Admission Objective Active Medications: Acetaminophen (Tylenol Tab*) 650 mg PO Q6H PRN PRN Reason: FEVER/PAIN Last Admin: 01/01/17 14:28 Dose: 650 mg Acyclovir (Zovirax Tab*) 400 mg PO BID [facility] Last Admin: 01/01/17 09:21 Dose: 400 mg Benzocaine (Orajel 10%*) 1 applic TOPICAL Q4H PRN PRN Reason: PAIN Clonazepam (Klonopin Tab(*)) 0.5 mg PO BEDTIME [facility] Last Admin: 12/31/16 23:19 Dose: 0.5 mg Diphenhydramine HCl (Benadryl Po*) 25 mg PO Q6H PRN PRN Reason: ITCHING Last Admin: 12/31/16 23:57 Dose: 25 mg Escitalopram Oxalate (Lexapro (Nf)) 10 mg PO DAILY [facility] Last Admin: 01/01/17 09:27 Dose: 10 mg Fenofibrate (Tricor(Nf)) 48 mg PO DAILY [facility] Last Admin: 01/01/17 09:27 Dose: 48 mg Filgrastim-Sndz (Zarxio*) 480 mcg SUBCUT DAILY [facility] Last Admin: 01/01/17 09:38 Dose: 480 mcg Gabapentin (Neurontin Cap(*)) 100 mg PO TID [facility] Last Admin: 01/01/17 13:55 Dose: 100 mg Heparin Sodium (Porcine) (Heparin Flush Port (Ivad)) 5 ml FLUSH DAILY [facility] PRN Reason: Protocol Last Admin: 01/01/17 09:24 Dose: Not Given Sodium Chloride (Ns 0.9% 1000 Ml*) 1,000 mls @ 125 mls/hr IV PER RATE [facility] Last Admin: 01/01/17 10:40 Dose: 125 mls/hr Sodium Chloride (Ns 0.9% 500 Ml Bag*) 500 mls @ 0 mls/hr IV KVO LIZA PRN Reason: KVO Last Admin: 12/27/16 18:53 Dose: 500 mls/hr Meropenem (Merrem 1 Gm Premix(*)) 1 gm in 50 mls @ 100 mls/hr IV Q8H [facility] Last Admin: 01/01/17 10:36 Dose: 100 mls/hr Vancomycin HCl 1,250 mg/ (Sodium Chloride) 250 mls @ 166.667 mls/hr IVPB Q6H [facility] Last Admin: 01/01/17 12:18 Dose: 166.667 mls/hr Melatonin (Melatonin (Nf)) 3 mg PO BEDTIME PRN; Protocol PRN Reason: Sleep Multi-Ingredient Mouthwash/Gargle (Magic Mouth Was-Shon/Maal/Lido*) 5 ml SWISH SPIT Q4H PRN PRN Reason: MOUTH PAIN Last Admin: 12/28/16 09:08 Dose: 5 ml Nystatin (Nystatin Suspension*) 200,000 units PO QID [facility] Last Admin: 01/01/17 13:54 Dose: 200,000 units Omeprazole (Prilosec Cap*) 20 mg PO DAILY@0600 [facility] Last Admin: 01/01/17 05:12 Dose: 20 mg Ondansetron HCl (Zofran Inj*) 4 mg IV Q6H PRN PRN Reason: NAUSEA Last Admin: 12/31/16 21:49 Dose: 4 mg Oxycodone/Acetaminophen (Percocet 5/325 Tab*) 1 tab PO Q4H PRN PRN Reason: PAIN Last Admin: 12/31/16 02:50 Dose: 1 tab Oxycodone/Acetaminophen (Percocet 5/325 Tab*) 2 tab PO Q4H PRN PRN Reason: PAIN Last Admin: 12/31/16 12:47 Dose: 2 tab Pharmacy Consult (Vancomycin Per Pharmacy*) 1 note FOLLOW UP . PRN PRN Reason: PER PROTOCOL Pharmacy Profile Note (Vancomycin Trough Check) 1 note FOLLOW UP 0530 ONE Stop: 01/02/17 05:31 Ranitidine HCl (Ranitidine Hcl) 150 mg PO BEDTIME [facility] PRN Reason: Protocol Last Admin: 12/31/16 23:21 Dose: 150 mg Trimethoprim/Sulfamethoxazole (Bactrim Ds 800/160 Tab*) 1 tab PO MoWeFr@0900 [facility] Last Admin: 12/31/16 09:35 Dose: 1 tab Vital Signs 12/31/16 12/31/16 12/31/16 17:21 18:13 19:50 Temperature 98.8 F 100.2 F Pulse Rate 75 89 Respiratory 16 16 16 Rate Blood Pressure 145/74 125/78 (mmHg) O2 Sat by Pulse 100 100 Oximetry 12/31/16 12/31/16 12/31/16 20:00 20:10 20:37 Temperature 101.0 F 101.7 F Pulse Rate 83 86 Respiratory 20 20 20 Rate Blood Pressure 132/80 123/94 (mmHg) O2 Sat by Pulse 100 99 Oximetry 12/31/16 12/31/16 12/31/16 22:10 23:19 23:20 Temperature 102.7 F Pulse Rate 100 Respiratory 18 18 18 Rate Blood Pressure 130/69 (mmHg) O2 Sat by Pulse 99 Oximetry 12/31/16 12/31/16 01/01/17 23:26 23:57 01:19 Temperature 100.4 F Pulse Rate 84 Respiratory 18 18 16 Rate Blood Pressure 110/55 (mmHg) O2 Sat by Pulse 96 Oximetry 01/01/17 01/01/17 01/01/17 01:20 01:57 05:01 Temperature 102.6 F Pulse Rate 100 Respiratory 18 17 16 Rate Blood Pressure 122/61 (mmHg) O2 Sat by Pulse 100 Oximetry 01/01/17 01/01/17 01/01/17 06:20 07:30 08:00 Temperature 102.8 F 100.1 F Pulse Rate 92 Respiratory 16 16 Rate Blood Pressure 111/60 (mmHg) O2 Sat by Pulse 93 Oximetry 01/01/17 01/01/17 01/01/17 09:25 11:25 11:31 Temperature 99.1 F Pulse Rate 93 Respiratory 16 16 17 Rate Blood Pressure 125/69 (mmHg) O2 Sat by Pulse 98 Oximetry 01/01/17 01/01/17 13:55 15:20 Temperature 101.1 F Pulse Rate 103 Respiratory 16 16 Rate Blood Pressure 125/67 (mmHg) O2 Sat by Pulse 99 Oximetry Oxygen Devices in Use Now: None Appearance: NAD Eyes: No Scleral Icterus, PERRLA Ears/Nose/Mouth/Throat: Mucous Membranes Moist, - - small lesion on right of tongue Neck: NL Appearance and Movements; NL JVP, Trachea Midline Respiratory: Symmetrical Chest Expansion and Respiratory Effort, Clear to Auscultation Cardiovascular: NL Sounds; No Murmurs; No JVD, RRR Abdominal: NL Sounds; No Tenderness; No Distention, No Hepatosplenomegaly Lymphatic: No Cervical Adenopathy Extremities: No Edema, No Clubbing, Cyanosis Skin: No Rash or Ulcers Neurological: Alert and Oriented x 3 Result Diagrams: 01/01/17 05:01 01/01/17 05:01 Additional Lab and Data: . Microbiology and Other Data: Microbiology 12/27/16 05:30 Aerobic Blood Culture - Preliminary Blood Venous No Growth Day 1 Anaerobic Blood Culture - Preliminary No Growth Day 1 Assess/Plan/Problems-Billing . 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 - Patient Problems (1) Neutropenic fever Comment: - Meropenem 1 IV Q8 - Vanco 1500 mg IV once, then by pharm dosing protocol - start voriconazole 01/01 x 2 doses then reduce to maintainence dosing - IV acyclovir/PO bactrim Neupogen 12/30 - BCX, UCX NGTD -- last drawm 12/29/16 - CXR without infiltrate - ongoing fevers, but responsive to acetaminophen. (2) Headache Comment: imitrex 12/30 with relief. Additional dose 12/31 percocet prn (3) Oral lesion Comment: improving; oragel & magic mouthwash. (4) Pancytopenia due to chemotherapy Comment: 1 unit PRBC 12/31 - He did not receive platelets platelet transfusion for plts < 10K PRBC for Hb <7 neuropogen started 12/29 Status and Disposition: Discussed care with [place]. Accepted but no bed availability at this time.
[2017-01-01] MEDS: VORICONAZOLE IVPB SCH ×2 (18:56→21:28)
[2017-01-01] MEDS: NS 0.9% IVPB SCH ×2 (18:56→21:28)
--- NOTE | 2017-01-01 19:36 | CONS ---
CONSULTATION REPORT: DATE OF CONSULT: 01/01/17 REQUESTING PHYSICIAN: Dr. Paniagua. CONSULTING SERVICE: Infectious Disease. REASON FOR CONSULTATION: Fever, neutropenia. IMPRESSION: 1. Profound neutropenia with a neutrophil count of 0 and persistent fever for the last 4 to 5 days, was on oral antibiotics as an outpatient. He seemed to defervesce a day and a half ago and then recurrence and perhaps worsening of fever in the last 18 hours. Differential diagnosis includes a typical enteric organism translocation, port infection, although blood cultures are negative, invasive fungal infection given the degree of neutropenia. 2. Cough for few weeks, nonproductive, unable to produce sputum. No acute process on his chest x-ray. 3. B cell lymphoblastic lymphoma with ongoing chemotherapy as directed by [facility] where he is part of a trial. 4. Pancytopenia. RECOMMENDATIONS: CT of the chest to evaluate for pneumonia including fungal. It was not seen on a chest x-ray. Depending on those results and his fever curve, we will broaden his antifungal therapy from fluconazole to voriconazole. HISTORY OF PRESENT ILLNESS: This is a 21-year-old man with B cell lymphoblastic lymphoma who has been treated for the last few months with chemotherapy at [facility]. He is admitted now with fever and a neutrophil count of 0. He has had extensive chemotherapy over the last few months including clinical trial. He has not had a bone marrow transplant. He had cytarabine about 10 days ago and oral chemotherapy. He had fever the day before admission and has had cough for 2 months. He was prescribed ciprofloxacin as an outpatient, but had persistence of fever and so was directed to the hospital. He was febrile to 39 degrees, but normotensive. He was tachycardic and tachypneic. Chest x-ray was unremarkable. Blood cultures were taken, but negative. His fever is persisted. He was on cefepime and vancomycin that was changed to cefepime and meropenem. He was continued on his fluconazole, Bactrim , and acyclovir prophylaxis. He seemed to defervesce a day and a half ago. He had a blood transfusion. Today, he had temperatures again and overnight to 39.3 degrees. He is concerned this is a transfusion reaction. He has had evaluation for that which is ongoing. He does endorse a cough which has been present for few weeks. It is nonproductive. He does not smoke. He does chew tobacco. Kids have had upper respiratory infections recently. He has had no travel. PAST MEDICAL HISTORY: 1. B cell lymphoblastic lymphoma, on chemotherapy, most recently cytarabine per the clinical trial. 2. Obesity. MEDICATIONS: 1. Tylenol. 2. Acyclovir 400 mg by mouth twice daily. 3. Escitalopram. 4. Fenofibrate. 5. G-CSF. 6. Gabapentin. 7. Magic mouth wash. 8. Melatonin. 9. Meropenem 1 g every 8 hours. 10. Nystatin suspension. 11. Omeprazole. 12. Ranitidine. 13. Bactrim Double Strength tablet Thursday, Thursday, Thursday. 14. Vancomycin 1250 mg IV every 6 hours. 15. Voriconazole 630 mg every 12 hours. SOCIAL HISTORY: Lives in [place] with his and kids. No travel. No sick contacts. FAMILY HISTORY: No recurrent infections. REVIEW OF SYSTEMS: All negative except as noted above to a full review of systems. PHYSICAL EXAM: Vital Signs: Temperature is 38, heart rate 100, respiratory rate 16, blood pressure 125/67, O2 sat 99% on room air. Generally, he is awake and oriented x3, follows all commands. Neurologic: Cranial nerves II through XII are intact. Sensation intact to light touch in the upper and lower extremities bilaterally. HEENT: There is no conjunctival hemorrhage. Oropharynx without thrush. Neck is supple without nuchal rigidity. Lymph Nodes : There is no cervical, supraclavicular, inguinal, axillary, or epitrochlear lymphadenopathy. Heart has regular rate and rhythm without No murmurs, rubs, or gallops. Lungs are clear to auscultation bilaterally. Abdomen: Soft, nontender, nondistended, is obese. Chest: There is a right chest port without surrounding erythema or drainage. Musculoskeletal: There is no spine tenderness to palpation or joint synovitis. LABORATORY DATA: White blood cell count 0.3, hemoglobin 7.9, platelets 13. Kidney function is 0.7. ALT was 23. Urinalysis showed no blood, nitrite, or white cells and the blood cultures have all been negative. Please see impressions and recommendations as outlined above, which I have discussed with Dr. Dunbar. Thank you for asking me to see Mr. Slaughter in consultation. [id number]/[facility] #: [id number] [facility]
[2017-01-01] MEDS ORDERED: Voriconazole(*) 200 MG VIAL IV SCH (21:00)
[2017-01-01] MEDS: RANITIDINE HCL 300 MG PO SCH (21:17)
[2017-01-01] MEDS: clonazePAM TAB(*) 0.5 MG PO SCH (21:17)
[2017-01-02] MEDS: Acetaminophen TAB* 325 MG PO PRN ×2 (00:11→08:41)
[2017-01-02] MEDS: Vancomycin(*) 1,250 MG in NS 0.9% 250 ML* 250 ML IVPB SCH ×3 (00:12→17:24)
[2017-01-02] MEDS: diPHENhydraMINE PO* 25 MG PO PRN (01:31)
[2017-01-02] MEDS: NS 0.9% 1000 ML* 1,000 ML IV SCH (03:31)
[2017-01-02] MEDS: Meropenem 1 GM PREMIX(*) 1 GM/50 ML BAG IV SCH ×2 (03:31→12:01)
[2017-01-02] MEDS ORDERED: Vancomycin Trough Check NOTE FOLLOW UP ONE (05:30)
[2017-01-02 05:37] LABS: Hematocrit 21 % (42-52); Mean Corpuscular HGB Conc 34 g/dl (31-36); Mean Corpuscular Hemoglobin 29 pg (27-31); Mean Corpuscular Volume 85 fL (80-94); Mean Platelet Volume 10 um3 (7.4-10.4); Red Blood Count 2.42 10^6/ul (4.0-5.4); Red Cell Distribution Width 13 % (10.5-15); White Blood Count 0.4 10^3/ul (3.5-10.8)
[2017-01-02 05:42] LABS: Comments Flag Yes
[2017-01-02 06:02] LABS: EGFR African American 194.1 (>60); EGFR Non-African American 150.9 (>60)
[2017-01-02 06:04] LABS: Vancomycin Trough 18.7 mcg/mL
[2017-01-02] MEDS: Omeprazole CAP* 20 MG PO SCH (06:33)
[2017-01-02] MEDS ORDERED: NS 0.9% IVPB SCH (09:00)
[2017-01-02] MEDS ORDERED: VORICONAZOLE IVPB SCH (09:00)
[2017-01-02] MEDS ORDERED: diPHENhydraMINE PO* 50 MG PO ONE (09:28)
[2017-01-02] MEDS: Nystatin SUSPENSION* 100000 UNITS/ML 5 ML UDC PO SCH ×2 (09:42→14:19)
[2017-01-02] MEDS: FILGRASTIM-SNDZ* 480 MCG/0.8 ML SYRINGE SUBCUT SCH (09:43)
[2017-01-02] MEDS: Sulfamethox/Trimethoprim DS 800/160* TAB PO SCH (09:44)
[2017-01-02] MEDS: Acyclovir* 400 MG TAB PO SCH (09:44)
[2017-01-02] MEDS: CMC: Escitalopram (NF) 10 MG TAB PO SCH (09:44)
[2017-01-02] MEDS: Gabapentin CAP(*) 100 MG PO SCH ×2 (09:45→14:17)
[2017-01-02] MEDS: FENOFIBRATE 48 MG PO SCH (09:46)
--- NOTE | 2017-01-02 10:20 | PN ---
Progress Note - Progress Note SOAP: Subjective: []Feels fine, better today then last couple days. Mouth cont.'s to feel better Wants to go. States he is leaving after blood. Tells me his oncologist has told him it is OK to go home. Multiple complaints regarding his care here. Medications: Acetaminophen (Tylenol Tab*) 650 mg PO Q6H PRN PRN Reason: FEVER/PAIN Last Admin: 01/02/17 08:41 Dose: 650 mg Acyclovir (Zovirax Tab*) 400 mg PO BID [facility] Last Admin: 01/02/17 09:44 Dose: 400 mg Benzocaine (Orajel 10%*) 1 applic TOPICAL Q4H PRN PRN Reason: PAIN Clonazepam (Klonopin Tab(*)) 0.5 mg PO BEDTIME [facility] Last Admin: 01/01/17 21:17 Dose: 0.5 mg Diphenhydramine HCl (Benadryl Po*) 25 mg PO Q6H PRN PRN Reason: ITCHING Last Admin: 01/02/17 01:31 Dose: 25 mg Escitalopram Oxalate (Lexapro (Nf)) 10 mg PO DAILY [facility] Last Admin: 01/02/17 09:44 Dose: 10 mg Fenofibrate (Tricor(Nf)) 48 mg PO DAILY [facility] Last Admin: 01/02/17 09:46 Dose: 48 mg Filgrastim-Sndz (Zarxio*) 480 mcg SUBCUT DAILY [facility] Last Admin: 01/02/17 09:43 Dose: 480 mcg Gabapentin (Neurontin Cap(*)) 100 mg PO TID [facility] Last Admin: 01/02/17 09:45 Dose: 100 mg Heparin Sodium (Porcine) (Heparin Flush Port (Ivad)) 5 ml FLUSH DAILY [facility] PRN Reason: Protocol Last Admin: 01/02/17 09:47 Dose: Not Given Sodium Chloride (Ns 0.9% 1000 Ml*) 1,000 mls @ 125 mls/hr IV PER RATE [facility] Last Admin: 01/02/17 03:31 Dose: 125 mls/hr Sodium Chloride (Ns 0.9% 500 Ml Bag*) 500 mls @ 0 mls/hr IV KVO [facility] PRN Reason: KVO Last Admin: 12/27/16 18:53 Dose: 500 mls/hr Meropenem (Merrem 1 Gm Premix(*)) 1 gm in 50 mls @ 100 mls/hr IV Q8H [facility] Last Admin: 01/02/17 03:31 Dose: 100 mls/hr Vancomycin HCl 1,250 mg/ (Sodium Chloride) 250 mls @ 166.667 mls/hr IVPB Q6H [facility] Last Admin: 01/02/17 06:34 Dose: 166.667 mls/hr Voriconazole 630 mg/ Sodium (Chloride) 250 mls @ 125.6 mls/hr IVPB 0900,2100 [facility] PRN Reason: 3 MG/KG/HR Last Admin: 01/02/17 09:59 Dose: 125.6 mls/hr Melatonin (Melatonin (Nf)) 3 mg PO BEDTIME PRN; Protocol PRN Reason: Sleep Multi-Ingredient Mouthwash/Gargle (Magic Mouth Was-Shon/Maal/Lido*) 5 ml SWISH SPIT Q4H PRN PRN Reason: MOUTH PAIN Last Admin: 12/28/16 09:08 Dose: 5 ml Nystatin (Nystatin Suspension*) 200,000 units PO QID [facility] Last Admin: 01/02/17 09:42 Dose: 200,000 units Omeprazole (Prilosec Cap*) 20 mg PO DAILY@0600 [facility] Last Admin: 01/02/17 06:33 Dose: 20 mg Ondansetron HCl (Zofran Inj*) 4 mg IV Q6H PRN PRN Reason: NAUSEA Last Admin: 12/31/16 21:49 Dose: 4 mg Oxycodone/Acetaminophen (Percocet 5/325 Tab*) 1 tab PO Q4H PRN PRN Reason: PAIN Last Admin: 12/31/16 02:50 Dose: 1 tab Oxycodone/Acetaminophen (Percocet 5/325 Tab*) 2 tab PO Q4H PRN PRN Reason: PAIN Last Admin: 12/31/16 12:47 Dose: 2 tab Pharmacy Consult (Vancomycin Per Pharmacy*) 1 note FOLLOW UP . PRN PRN Reason: PER PROTOCOL Ranitidine HCl (Ranitidine Hcl) 150 mg PO BEDTIME [facility] PRN Reason: Protocol Last Admin: 01/01/17 21:17 Dose: 150 mg Trimethoprim/Sulfamethoxazole (Bactrim Ds 800/160 Tab*) 1 tab PO MoWeFr@0900 [facility] Last Admin: 01/02/17 09:44 Dose: 1 tab Objective: [] Vital Signs Temp Pulse Resp BP Pulse Ox 97.7 F 89 14 116/73 100 01/02/17 04:19 01/02/17 04:19 01/02/17 09:45 01/02/17 04:19 01/02/17 04:19 A&Ox3, EOMI, CHRISTIANSON, neuro grossly non-focal HRR, no murmur noted LS clear bilat., resp. 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 Plan of care discussed with Dr. Paniagua ( hospitalist) who has coordinated with Dr. Brito (pt.'s primary oncologist, [place]), no recommendation for d/c until ANC at least >500, however pt. adamant that he will not stay. Reviewed concerns regarding d/c however pt. and adamant that Dr. Brito said he was getting d/c'd following transfusions and daily abx. with PO abx. such as Augmentin. Plan: []1. Transfuse plt. and blood today 2. PT eval. for hx. of syncope 3. Neupogen until ANC at least >500 - may be difficult to obtain as outpatient, will have case management look into
[2017-01-02 13:55] VITALS: BP 130/73
--- NOTE | 2017-01-03 00:48 | DS ---
CC: Dr. Mckeon, [place] * DISCHARGE/AMA SUMMARY: DATE OF ADMISSION: 12/26/16 DATE OF LEAVING AGAINST MEDICAL ADVICE: 01/02/17 PRIMARY DIAGNOSES: 1. Neutropenic fever. 2. Acute lymphoblastic leukemia. SECONDARY DIAGNOSES: 1. Pancytopenia, including critical thrombocytopenia. The patient received 3 units of packed red blood cells and 3 units of platelets during hospital stay. PERTINENT LABORATORY DATA: Absolute neutrophil count on day of discharge is 100 increased from zero, platelets on day of discharge were 8000. He received 1 unit of platelets prior to discharge, refused CBC redraw. Hemoglobin on day of discharge was 7, refused transfusion of packed red blood cells. PERTINENT VITAL SIGNS: Last fever 01/01/17 at 100.2, highest fever in last 24 hours is 101.1 on 01/01/17 at 3:20 p.m. MEDICATIONS: Provided to the patient despite his leaving against medical advice included: 1. Acyclovir 400 mg twice daily. 2. Zantac 150 mg at bedtime. 3. Fenofibrate 48 mg daily. 4. Compazine 10 mg 4 times a day as needed for nausea. 5. Ondansetron 8 mg daily as needed for nausea. 6. Bactrim double strength 1 tab Thursday, Thursday, Thursday prophylaxis dosing. 7. Pantoprazole 20 mg daily. 8. Klonopin 0.5 mg at bedtime. 9. Lexapro 10 mg daily. 10. Gabapentin 100 mg 3 times daily. 11. Fluconazole 400 mg daily for prophylaxis. 12. Filgrastim 480 mcg daily. 13. Augmentin 875 mg twice daily. 14. Acetaminophen 650 mg every 6 hours as needed for pain or fever. CONSULTATIONS OBTAINED DURING THE HOSPITAL STAY: Hematology Oncology and Infectious Diseases. HISTORY OF PRESENT ILLNESS AND HOSPITAL COURSE: This is a 21-year-old man recently finished his last high dose therapy for ALL 6 days prior after which he developed neutropenic fever, presented to the hospital. His antibiotic regimen was brought in to include vancomycin, meropenem, and loaded dose of voriconazole as well as continued prophylactic doses of acyclovir and Bactrim. He received blood products as indicated above for his pancytopenia and was started on Filgrastim on 12/29/16 for a total of 5 doses prior to his discharge. The patient continued to be febrile during the course of the hospital stay, although did not look acutely ill. He was adamant about leaving the hospital to attend a wedding tomorrow. This was against medical advice of his primary care (this author) as well as Infectious Disease as well as our system development manager oncologist given his ongoing pancytopenia and neutropenia in the setting of ongoing fevers. Plan was made in conjunction with his outpatient oncologist to continue imaging the patient given his decision to leave AMA. He has been setup to receive platelets at [facility] on Thursday at 10:45. Extensive counseling was undergone with the patient regarding low microbial diet , wearing mask at all times as well as washing his hands frequently. He was advised to stay well hydrated at the wedding tomorrow if he is to attend, which is also against this author's best advice. Despite our extensive counseling with the patient, the risks explained to him including but not limited to severe morbidity including spontaneous bleeding inside of his hands, seizures, loss of consciousness or and he still chose to leave and accepts these risks. This author's opinion is that that he had the capacity to make the decision at the time of his departure. Extensive return to the emergency room instructions were given to the patient including but not limited to recurrent or worsening symptoms, high fevers not controlled with Tylenol, shaking, rigors , nausea, vomiting, lightheadedness, loss of consciousness, near loss of consciousness, diarrhea, new rashes, severe headaches, inability to obtain or tolerate his medication, fluid or water. He acknowledged understanding. TIME SPENT: Greater than 75 minutes were spent on the discharge of this patient , greater than half was [id number] with the patient. [id number]/[facility] #: [id number] [place]
[2017-01-03] MEDS ORDERED: Vancomycin Trough Check NOTE FOLLOW UP ONE (11:30)
== END 2017-01-02 17:00 | disposition left against medical advice (07) | DRG 660 ==
LOC: ED 20:36 → MED 12-27 02:10
PROVIDERS: ADMIT Hospitalist; ATTEND Internal Medicine
PROC: 30233R1 Transfusion of Nonautologous Platelets into Peripheral Vein, Percutaneous Approach (ICD-10-PCS; principal; 2016-12-31)
PROC: 30233N1 Transfusion of Nonautologous Red Blood Cells into Peripheral Vein, Percutaneous Approach (ICD-10-PCS; 2016-12-31)
DX: D70.9 Neutropenia, unspecified (principal); C91.00 Acute lymphoblastic leukemia not having achieved remission; Z88.8 Allergy status to other drugs, medicaments and biological substances; F17.200 Nicotine dependence, unspecified, uncomplicated; E66.9 Obesity, unspecified; R50.81 Fever presenting with conditions classified elsewhere; K12.30 Oral mucositis (ulcerative), unspecified; R51 Headache; D61.810 Antineoplastic chemotherapy induced pancytopenia; T45.1X5A Adverse effect of antineoplastic and immunosuppressive drugs, initial encounter; R10.9 Unspecified abdominal pain; Z80.8 Family history of malignant neoplasm of other organs or systems; Z68.36 Body mass index [BMI] 36.0-36.9, adult
CPT/HCPCS: 36415; 71010; 80048; 80053; 80202; 81003; 82565; 83605; 84484; 84520; 85025; 85049; 85060; 85610; 85730; 86078; 86850; 86900; 86901; 86922; 87040; 87086; 99232; 99233; A9270-GY; J0692; J1447; J1450; J1642; J2185; J2405; J3370; J3465; P9035; P9040; Q5101 ZA